=== PATIENT | male | born 1950 | race Caucasian/White ===

== ENCOUNTER → 2020-06-25 18:12 | Outpatient (CLI) | payer MEDICARE, SELFPAY ==
[2020-06-25 18:36] LABS: Basophils # 0.1 K/mm3 (0-0.2); Basophils % 0.8 % (0.1-2.0); Eosinophils # 0.2 K/mm3 (0.0-0.4); Eosinophils % 3.9 % (0.1-12.0); Hematocrit 47.9 % (42.0-52.0); Hemoglobin 15.5 g/dL (14.1-18.0); Lymphocytes # 2.3 K/mm3 (0.7-4.5); Lymphocytes % 38.1 % (10-50); Mean Corpuscular HGB Conc 32.3 g/dL (31.8-35.4); Mean Corpuscular Volume 92.7 fl (80-94); Mean Platelet Volume 8.3 fl (7.4-10.4); Monocytes # 0.4 K/mm3 (0.1-1.0); Monocytes % 6.7 % (1.7-9.3); Neutrophils # 3.1 K/mm3 (1.8-7.8); Neutrophils % 50.5 % (37.0-80.0); Platelet Count 211 K/mm3 (142-424); Red Blood Count 5.16 M/mm3 (4.60-6.20); Red Cell Distribution Width 13.6 % (11.5-17.5); White Blood Count 6.1 K/mm3 (4.8-10.8)
[2020-06-25 18:45] LABS: Alanine Aminotransferase 37 U/L (12-78); Albumin Level 4.6 g/dl (3.5-5.0); Albumin/Globulin Ratio 1.4 (1.1-1.8); Alkaline Phosphatase 100 U/L (38-126); Anion Gap 14.8 mEq/L (5-15); Aspartate Amino Transferase 36 U/L (17-59); Bilirubin,Total 0.6 mg/dl (0.2-1.3); Blood Urea Nitrogen 17 mg/dl (9-20); Calcium 9.7 mg/dl (8.4-10.2); Carbon Dioxide 28 mmol/L (22.0-30.0); Chloride 105 mmol/L (98-107); Chol/HDL Ratio 6.6 (1-3.5); Cholesterol 210 mg/dl (140-200); Estimated Glomerular Filt Rate 60 ml/min (>60); GFR (African American) 72 ML/MIN (>60); Globulin 3.3 g/dL (1.3-3.2); Glucose 88 mg/dl (74-100); HDL Cholesterol 32 mg/dl (40-60); Potassium 4.8 mmoL/L (3.5-5.1); Sodium 143 mmol/L (136-145); Total Protein,Serum 7.9 g/dl (6.3-8.2); Triglycerides 220 mg/dl (30-150); VLDL Cholesterol 44 mg/dL (0-40)
[2020-06-25 18:55] LABS: Direct LDL Cholesterol 136.97 mg/dL (100-129)
[2020-06-25 19:05] LABS: T4 (Thyroxine) 8.9 ug/dl (5.53-11.0)
[2020-06-25 19:19] LABS: Prostate Specific Ag Screen 3.5 ng/ml (0.0-4.0)
== END ==
PROVIDERS: Visit Provider Family Medicine
DX: E03.9 Hypothyroidism, unspecified (principal); Z12.5 Encounter for screening for malignant neoplasm of prostate
CPT/HCPCS: 80053; 80061; 84436; 84443; 85025; G0103

== ENCOUNTER → 2020-07-03 13:11 | Outpatient (CLI) | payer MEDICARE, SELFPAY ==
--- NOTE | 2020-07-03 13:11 | CA_ITS ---
APPROVED REPORT EXAM: Comprehensive 2D, Doppler, and color-flow Echocardiogram Battery Assembler Dry Cell: Myla Dean RVT Ht: 5 ft 9 in Wt: 228lbs BSA: 2.18 BP: 126/80 mmHg Indications: EDEMA,HTN,DM,HLD 2D Dimensions LVOT 2.31 cm (M/F) 1.5-2.5 M-Mode Dimensions RVDd 2.88 cm (0.9-2.6) LA Diam 3.20 cm (1.9-4.0) LVDd 5.55 cm (3.5-5.7) Ao Diam 3.62 cm (2.0-3.7) LVDs 3.73 cm (3.5-5.7) IVSd 0.97 cm (0.6-1.1) PWd 0.76 cm (0.6-1.1) EF (Teich) 60.60% FS 32.80% EDV (Teich) 150.50 mL ESV (Teich) 59.30 mL LV Diastology E Decel Time 200.00 (160-240 msec) E/A Ratio 0.7 MED E' 8.20 (< 7 cm/sec) E'/MED E' Ratio 6.52 (>14) LAT E' 10.50 (<10 cm/sec) E/LAT E' Ratio 5.10 (>14) Mitral Valve MV E Max Benjamin. 54.00 (40-130 cm/s) MV A Velocity 79.00 (40-130 cm/s) E/A Ratio 0.67 MV Decel. Time 200.00 (160-240 ms) MV PHT 59.00 ms Pulmonary Valve PV Peak Velocity 85.00 (50-150 cm/s) Left Ventricle Left atrium is mildly enlarged, left ventricle is normal size, mild concentric left ventricular hypertrophy, visually estimated ejection fraction 55% with no regional wall motion abnormality, grade 1 diastolic dysfunction seen without tissue Doppler evidence of raise left atrial pressure. Right Ventricle Right atrium and right ventricle are mildly enlarged with normal contractility. Aortic Valve Aortic valve is thickened and calcified leaflet chordae display good mobility, there is no aortic stenosis or aortic insufficiency. Mitral Valve Mitral valve is grossly normal, there is mild mitral regurgitation. Tricuspid Valve Tricuspid valve is grossly normal, there is mild tricuspid regurgitation, tricuspid regurgitation jet velocity is inadequate for calculation of the right ventricular systolic pressure. Pulmonic Valve Pulmonic valve is poorly visualized. Great Vessels Aortic root is normal size. Pericardium No significant pericardial effusion noted. Conclusion 1. Mild biatrial alignment, normal left ventricular size, mild concentric left ventricular hypertrophy, visually estimated ejection fraction 55% with no regional wall motion abnormality, grade 1 diastolic dysfunction seen without tissue Doppler evidence of raise left atrial pressure. 2. Mild mitral and tricuspid regurgitation. 3. No significant pericardial effusion noted. Electronically signed by : Kaleb Caballero, 07/04/2020 16:32:18
== END ==
PROVIDERS: PCP Family Medicine; Visit Provider Family Medicine
DX: R60.0 Localized edema (principal)
CPT/HCPCS: 93306

== ENCOUNTER → 2020-11-21 14:25 | Outpatient (CLI) | payer MEDICARE, SELFPAY ==
[2020-11-21 14:45] LABS: Basophils # 0.1 K/mm3 (0-0.2); Eosinophils # 0.3 K/mm3 (0.0-0.4); Eosinophils % 4.8 % (0.1-12.0); Hemoglobin 16.3 g/dL (14.1-18.0); Lymphocytes # 2.4 K/mm3 (0.7-4.5); Mean Corpuscular HGB Conc 33.1 g/dL (31.8-35.4); Mean Corpuscular Hemoglobin 29.2 pg (27.0-31.2); Mean Corpuscular Volume 88.1 fl (80-94); Mean Platelet Volume 8.6 fl (7.4-10.4); Monocytes # 0.4 K/mm3 (0.1-1.0); Monocytes % 5.3 % (1.7-9.3); Neutrophils # 3.5 K/mm3 (1.8-7.8); Neutrophils % 52.8 % (37.0-80.0); Platelet Count 201 K/mm3 (142-424); Red Blood Count 5.56 M/mm3 (4.60-6.20); Red Cell Distribution Width 14.2 % (11.5-17.5); White Blood Count 6.6 K/mm3 (4.8-10.8)
[2020-11-21 14:52] LABS: Alanine Aminotransferase 57 U/L (12-78); Albumin Level 4.6 g/dl (3.5-5.0); Albumin/Globulin Ratio 1.3 (1.1-1.8); Alkaline Phosphatase 85 U/L (38-126); Anion Gap 16.5 mEq/L (5-15); Aspartate Amino Transferase 42 U/L (17-59); Bilirubin,Total 0.5 mg/dl (0.2-1.3); Blood Urea Nitrogen 17 mg/dl (9-20); Calcium 9.5 mg/dl (8.4-10.2); Carbon Dioxide 26 mmol/L (22.0-30.0); Chloride 104 mmol/L (98-107); Chol/HDL Ratio 8.7 (1-3.5); Cholesterol 226 mg/dl (140-200); Estimated Glomerular Filt Rate 54 ml/min (>60); GFR (African American) 66 ML/MIN (>60); Globulin 3.6 g/dL (1.3-3.2); Glucose 100 mg/dl (74-100); HDL Cholesterol 26 mg/dl (40-60); Potassium 4.5 mmoL/L (3.5-5.1); Sodium 142 mmol/L (136-145); Total Protein,Serum 8.2 g/dl (6.3-8.2); Triglycerides 289 mg/dl (30-150); VLDL Cholesterol 58 mg/dL (0-40)
[2020-11-21 15:03] LABS: Direct LDL Cholesterol 145.27 mg/dL (100-129)
[2020-11-21 15:07] LABS: T4 (Thyroxine) 10.6 ug/dl (5.53-11.0)
[2020-11-21 15:21] LABS: Thyroid Stimulating Hormone 2.91 uIU/mL (0.465-4.68)
== END ==
PROVIDERS: Visit Provider Family Medicine
DX: E03.9 Hypothyroidism, unspecified (principal); I10 Essential (primary) hypertension; R60.9 Edema, unspecified; I51.89 Other ill-defined heart diseases
CPT/HCPCS: 80053; 80061; 84436; 84443; 85025

== ENCOUNTER → 2020-12-19 19:41 | Outpatient (CLI) | payer MEDICARE, SELFPAY | PROVIDERS: PCP Family Medicine; Visit Provider Family Medicine | DX: G47.30 Sleep apnea, unspecified (principal); I10 Essential (primary) hypertension; R40.0 Somnolence; R06.83 Snoring; G47.33 Obstructive sleep apnea (adult) (pediatric) | CPT/HCPCS: 95810 ==

== ENCOUNTER → 2021-03-13 19:48 | Outpatient (CLI) | payer MEDICARE, SELFPAY | PROVIDERS: PCP Family Medicine; Visit Provider Specialist | DX: G47.33 Obstructive sleep apnea (adult) (pediatric) (principal); G47.61 Periodic limb movement disorder; R09.02 Hypoxemia | CPT/HCPCS: 95811 ==

== ENCOUNTER → 2021-03-27 12:15 | Outpatient (CLI) | payer MEDICARE, SELFPAY ==
[2021-03-27 12:18] LABS: MANUAL DIFFERENTIAL MANUAL DIFFERENTIAL (MANUAL DIFF)
[2021-03-27 13:10] LABS: Basophils # 0.1 K/mm3 (0-0.2); Eosinophils # 0.3 K/mm3 (0.0-0.4); Eosinophils % 5.7 % (0.1-12.0); Hematocrit 43.7 % (42.0-52.0); Hemoglobin 14.8 g/dL (14.1-18.0); Lymphocytes # 2.1 K/mm3 (0.7-4.5); Lymphocytes % 36.5 % (10-50); Mean Corpuscular HGB Conc 33.9 g/dL (31.8-35.4); Mean Corpuscular Hemoglobin 29.3 pg (27.0-31.2); Mean Corpuscular Volume 86.4 fl (80-94); Mean Platelet Volume 8.1 fl (7.4-10.4); Monocytes # 0.4 K/mm3 (0.1-1.0); Monocytes % 6.8 % (1.7-9.3); Neutrophils # 2.9 K/mm3 (1.8-7.8); Neutrophils % 50.1 % (37.0-80.0); Platelet Count 191 K/mm3 (142-424); Red Blood Count 5.06 M/mm3 (4.60-6.20); Red Cell Distribution Width 14.3 % (11.5-17.5); White Blood Count 5.8 K/mm3 (4.8-10.8)
[2021-03-27 13:27] LABS: Iron 101 ug/dL (49-181)
[2021-03-27 13:36] LABS: Total Iron Binding Capacity 334 ug/dL (261-462)
[2021-03-27 14:01] LABS: Eosinophils % 5 % (0-3); Lymphocytes % 33 % (10-50); Monocytes % 4 % (2-9); Neutrophils % 56 % (42-76); Platelet Estimate Normal; RBC Morphology Normal; Total Cells Counted 100
[2021-03-27 14:03] LABS: Ferritin 20.8 ng/ml (17.9-464)
== END ==
PROVIDERS: Visit Provider Nurse Practitioner Family
DX: D51.0 Vitamin B12 deficiency anemia due to intrinsic factor deficiency (principal)
CPT/HCPCS: 36415; 82728; 83540; 83550; 85007; 85014; 85018; 85048; 85049

== ENCOUNTER → 2021-10-13 19:26 | Outpatient (CLI) | payer MEDICARE, SELFPAY | PROVIDERS: PCP Family Medicine; Visit Provider Nurse Practitioner Family | DX: G47.33 Obstructive sleep apnea (adult) (pediatric) (principal); G47.61 Periodic limb movement disorder; R06.83 Snoring | CPT/HCPCS: 95811 ==

== ENCOUNTER → 2021-11-03 09:10 | Outpatient (CLI) | payer MEDICARE, SELFPAY ==
--- NOTE | 2021-11-03 09:15 | XR_ITS ---
FINAL REPORT TECHNIQUE: Chest PA & Lateral CLINICAL HISTORY: nocturnal hypoxemia. sleep apnea. oxygen dropping 72% at night. smoking hx quit in FINDINGS: 2 views of the chest were performed. The heart size is normal. The mediastinum is within normal limits. There is scarring or atelectasis in the lung bases. There are no pleural effusions. There is no pneumothorax. The bony thorax appears intact. IMPRESSION: Bibasilar scarring or atelectasis. Reviewed, Interpreted and Dictated by Don Cardenas MD Transcribed by Ray Stevenson Authenticated by Don Cardenas MD on 11/03/2021 11:17:20 AM [facility]
[2021-11-03 10:30] VITALS: PULSE 65; PULSE 73
== END ==
PROVIDERS: PCP Family Medicine; Visit Provider Nurse Practitioner Family
DX: G47.33 Obstructive sleep apnea (adult) (pediatric) (principal); G47.34 Idiopathic sleep related nonobstructive alveolar hypoventilation; I51.89 Other ill-defined heart diseases; Z99.81 Dependence on supplemental oxygen
CPT/HCPCS: 71046; 94060; 94618; 94640; 94727; 94729

== ENCOUNTER → 2021-12-22 07:14 | Outpatient (CLI) | payer MEDICARE, SELFPAY ==
--- NOTE | 2021-12-22 07:15 | NM_ITS ---
APPROVED REPORT Exam: Nuclear Stress Test Indication: Chest pain, SOB, Abnormal EKG, HTN, High cholesterol Patient Location: Outpatient Stress Tech: Kayley Weller MT Tech:Fabiana Ram, ARRT, RT (R)(N) Ht: 5 ft 9 in Wt: 240 lbs HR: 53 bpm BP: 148/85 mmHg BSA: 2.23 m2 BMI: 35.4 History: Chest pain, SOB, Abnormal EKG, HTN, High cholesterol Procedure: Patient received a 0.4 mg of intravenous Lexiscan, resting heart rate 53 bpm, resting blood pressure 148/85 mmHg, with Lexiscan maximum heart rate achived was 77 bpm which is Less than 85 % of the maximum predicted heart rate and blood pressure was 161/87 mmHg. With Lexiscan, patient denied any complaint of chest pain. Electrocardiogram Resting electrocardiogram shows sinus rhythm, with Lexiscan there is less than 1.[address] segment depression noted from the baseline EKG. The EKG portion of the Lexiscan is nondiagnostic. Cardiac Stress and Resting SPECT Images: Cardiac Stress and Resting SPECT images were obtained using technetium 99m Myoview 31.0 mCi stress and 10.15 mCi at rest. Gated SPECT for analysis of segmental wall motion and calculation of the ejection fraction also done. Cardiac stress and resting SPECT images show uniform myocardial activity without segmental perfusion abnormality, computer derived ejection fraction is over 65% with no regional wall motion abnormality, right ventricle is normal size and contractility. Conclusion: 1. The EKG portion of the Lexiscan Myoview is nondiagnostic. 2. No scintigraphic evidence of reversible ischemia seen, computer derived ejection fraction is over 65% with no regional wall motion abnormality, right ventricle is normal size and contractility. 3. Normal Lexiscan Myoview study. Electronically signed by : Kaleb Caballero MD 12/22/2021 20:37:33
--- NOTE | 2021-12-22 07:59 | CA_ITS ---
APPROVED REPORT EXAM: Comprehensive 2D, Doppler, and color-flow Echocardiogram Spiral Winding Machine Helper: Lacie Sam, RCS, RVS Ht: 5 ft 9 in Wt: 242lbs BSA: 2.24 BP: 162/78 mmHg Indications: CP, abn ekg, SOA, CHF 2D Dimensions IVSd 1.18 cm LVEF (Visual) 69.10 % PWd 1.07 cm LA Volume 41.60 mL LVDd 4.96 cm LA Volume Index 18.230770 mL/m2 (M/F) 16-34 LVDs 3.03 cm Aortic Root 3.25 cm Left Atrium 3.38 cm LVOT 1.72 cm (M/F) 1.5-2.5 M-Mode Dimensions LA Diam 4.35 cm (1.9-4.0) Ao Diam 3.62 cm (2.0-3.7) EPSs 0.38 cm TAPSE 2.56 (<1.7) LV Diastology E Decel Time 267.00 (160-240 msec) E/A Ratio 1.06 MED E' 6.70 (< 7 cm/sec) MED A' 7.80 cm/s E'/MED E' Ratio 14.04 (>14) LAT E' 9.20 (<10 cm/sec) LAT A' 9.60 cm/s E/LAT E' Ratio 10.23 (>14) Aortic Valve LVOT Max 117.00 (70-110 cm/s) LVOT VTI 28.17 cm AoV Peak Benjamin. 150.00 (50-130 cm/s) AO Peak GR. 9.10 mmHg AO Mean GR. 4.70 (<5 mmHg) AO VTI 33.28 (18-25 cm) ABELARDO (VTI) 1.97 (2.5-4.5 cm2) Mitral Valve MV A Velocity 89.00 (40-130 cm/s) E/A Ratio 1.06 MV Decel. Time 267.00 (160-240 ms) MV Mean Gr. 1.60 (<2mmHg) MV PHT 73.00 ms Pulmonary Valve PV Peak Velocity 100.00 (50-150 cm/s) Tricuspid Valve TR P. Velocity 182.00 cm/s RAP Estimate 10.00 mmHg RVSP 23.20 mmHg Left Ventricle Left atrium is mildly enlarged, left ventricle is normal size, mild concentric left ventricular hypertrophy, estimated ejection fraction 55% with no regional wall motion abnormality, grade 2 diastolic dysfunction seen without tissue Doppler evidence of raise left atrial pressure. Right Ventricle Right atrium and right ventricular enlargement with normal contractility. Aortic Valve Aortic valve is minimally thickened and fibrosed, there is no aortic stenosis or aortic insufficiency. Mitral Valve Mitral valve grossly normal, there is trace mitral regurgitation. Tricuspid Valve Tricuspid valve grossly normal, there is trace tricuspid regurgitation, tricuspid regurgitation jet velocity is inadequate for calculation of the right ventricular systolic pressure Pulmonic Valve Pulmonic valve is poorly visualized. Great Vessels Aortic root is normal size. Inferior vena cava is poorly visualized. Pericardium No significant pericardial effusion. Conclusion 1. Mild biatrial enlargement, normal left ventricular size, mild concentric left ventricular hypertrophy estimated ejection fraction 55% with no regional wall motion abnormality, grade 2 diastolic dysfunction. No tissue Doppler evidence of raise left atrial pressure. 2. Mildly noted ventricular normal contractility. 3. Trace mitral and tricuspid regurgitation. 4. No significant pericardial effusion noted. Electronically signed by : Kaleb Caballero MD 12/22/2021 20:58:41
--- NOTE | 2021-12-22 08:50 | HMH.ITSHM ---
Current Home Medications as stated by this patient Luis Cueto or outside sales representative. []TADALAFIL POTASSIUM NEBIVOLOL METFORMIN LORATADINE LEVOTHYROXINE FUROSEMIDE VITAMIN B12 ASA ALBUTEROL
--- NOTE | 2021-12-22 09:06 | CA_ITS ---
APPROVED REPORT Exam: Pharmacologic Technologist: Kayley Garcia, Ht: 5 ft 9 in Wt: 242 lbs BSA: 2.24 m2 HR: 54 bpm BP: 148/85 mmHg Medical History Medications: Levothyroxine,,,,, Vitamin B12,,,,, Albuterol,,,,, LoraTADINE,,,,, Bystolic,,,,, TAdalafil,,,,, Furosemide,,,,, Metformin ER,,,,, Potassuim Chloride ER,,,,, Stress Test Details Test: LEXISCAN HR Resting HR: 53 bpm Max Heart Rate (APMHR): 147.202435 bpm Max HR Achieved: 77 bpm Target HR (85% APMHR): 124.660818 bpm % of APMHR: 52.38 Recovery HR: 67 bpm BP Resting BP: 148/85 mmHg Max BP: 161/87 mmHg Recovery BP: 157.0/92.0 mmHg ECG Resting ECG: Sinus Bradycardia Clinical Reason for Termination: Completed Protocol Exercise duration: 04:08 min Highest Stage Achieved: Stress ECG Conclusion Symptoms: No CP Arrhythmias/Ectopy: None ST-T Changes: <1.[address] Segment changes Conclusion: Non-Diagnostic Test Summary RECOVERY 02:29 . . 64 . 157/ 92 . . REST 01:18 . . 53 . 148/ 85 . . Stage 1 01:00 . . 74 . . . . Stage 2 01:00 . . 75 . 152/ 84 . . Stage 3 01:00 . . 69 . 161/ 87 . . Stage 4 01:00 . . 66 . . . . Stage 4 01:08 . . 66 . 145/ 82 . Stop exercise at 04:08 RECOVERY 01:00 . . 65 . . . . RECOVERY 02:00 . . 65 . . . . RECOVERY 02:29 . . 64 . 157/ 92 . . Electronically signed by : Kaleb Caballero MD 12/22/2021 20:33:33
== END ==
PROVIDERS: PCP Family Medicine; Visit Provider Nurse Practitioner Family
DX: R06.00 Dyspnea, unspecified; R07.9 Chest pain, unspecified; R60.9 Edema, unspecified; I11.9 Hypertensive heart disease without heart failure; R94.31 Abnormal electrocardiogram [ECG] [EKG]
CPT/HCPCS: 78452; 93017; 93306; A9502; J2785

== ENCOUNTER → 2022-08-03 09:08 | Outpatient (CLI) | payer MEDICARE, SELFPAY ==
[2022-08-03 10:49] LABS: Alanine Aminotransferase 48 U/L (12-78); Albumin Level 4.4 g/dl (3.5-5.0); Alkaline Phosphatase 90 U/L (38-126); Aspartate Amino Transferase 41 U/L (17-59); Bilirubin,Direct 0.1 mg/dl (0.0-0.4); Bilirubin,Indirect 0.4 mg/dL (0.0-0.9); Bilirubin,Total 0.5 mg/dl (0.2-1.3); Bilirubin,Unconjugated 0.3 mg/dL (0.0-1.1); Chol/HDL Ratio 5.5 (1-3.5); Cholesterol 205 mg/dl (140-200); HDL Cholesterol 37 mg/dl (40-60); Total Protein,Serum 7.4 g/dl (6.3-8.2); Triglycerides 231 mg/dl (30-150); VLDL Cholesterol 46 mg/dL (0-40)
[2022-08-03 11:00] LABS: Direct LDL Cholesterol 117.76 mg/dL (100-129)
== END ==
PROVIDERS: PCP Family Medicine; Visit Provider Nurse Practitioner
DX: E78.5 Hyperlipidemia, unspecified (principal); I10 Essential (primary) hypertension
CPT/HCPCS: 36415; 80061; 80076

== ENCOUNTER → 2022-11-17 09:35 | Outpatient (CLI) | payer MEDICARE, SELFPAY ==
[2022-11-17 10:55] VITALS: PULSE 72; PULSE 76
== END ==
PROVIDERS: PCP Family Medicine; Visit Provider Internal Medicine Pulmonary Disease
DX: R06.09 Other forms of dyspnea (principal)
CPT/HCPCS: 94060; 94618; 94640; 94727; 94729

== ENCOUNTER → 2023-03-30 08:12 | Outpatient (CLI) | payer MEDICARE, SELFPAY ==
[2023-03-30 08:56] LABS: Alanine Aminotransferase 64 U/L (12-78); Albumin Level 4.3 g/dl (3.5-5.0); Albumin/Globulin Ratio 1.2 (1.1-1.8); Alkaline Phosphatase 74 U/L (38-126); Anion Gap 9.8 mEq/L (5-15); Aspartate Amino Transferase 55 U/L (17-59); Bilirubin,Total 0.7 mg/dl (0.2-1.3); Blood Urea Nitrogen 19 mg/dl (9-20); Carbon Dioxide 31 mmol/L (22.0-30.0); Chloride 104 mmol/L (98-107); Estimated Glomerular Filt Rate 46 ml/min (>60); GFR (African American) 55 ML/MIN (>60); Globulin 3.5 g/dL (1.3-3.2); Glucose 103 mg/dl (74-100); Potassium 4.8 mmoL/L (3.5-5.1); Sodium 140 mmol/L (136-145); Total Protein,Serum 7.8 g/dl (6.3-8.2)
== END ==
PROVIDERS: PCP Family Medicine; Visit Provider Family Medicine
DX: R07.89 Other chest pain (principal)
CPT/HCPCS: 36415; 80053; 82565; 84520

== ENCOUNTER → 2023-04-01 07:04 | Outpatient (CLI) | payer MEDICARE, SELFPAY ==
[2023-04-01 07:28] VITALS: BP 176/86; PULSE 62; RESP 18; TEMP 36.8; O2SAT 98
[2023-04-01 07:43] LABS: POC Glucose,Bedside 95 (70-110)
[2023-04-01 07:50] VITALS: BP 142/85; PULSE 66; RESP 18; O2SAT 96
== END ==
PROVIDERS: PCP Family Medicine; Visit Provider Physician Assistant
DX: R07.9 Chest pain, unspecified (principal)
CPT/HCPCS: 75574; 82962; Q9967

== ENCOUNTER → 2023-04-08 23:26 | Outpatient (CLI) | payer MEDICARE, SELFPAY ==
[2023-04-08 18:51] LABS: Basophils % 0.5 % (0.1-2.0); Eosinophils # 0.2 K/mm3 (0.0-0.4); Eosinophils % 3.1 % (0.1-12.0); Hematocrit 45.6 % (42.0-52.0); Hemoglobin 14.4 g/dL (14.1-18.0); Lymphocytes # 2.2 K/mm3 (0.7-4.5); Lymphocytes % 38.8 % (10-50); Mean Corpuscular HGB Conc 31.7 g/dL (31.8-35.4); Mean Corpuscular Hemoglobin 30.4 pg (27.0-31.2); Mean Platelet Volume 9.5 fl (7.4-10.4); Monocytes # 0.4 K/mm3 (0.1-1.0); Monocytes % 6.5 % (1.7-9.3); Neutrophils # 2.9 K/mm3 (1.8-7.8); Platelet Count 175 K/mm3 (142-424); Red Blood Count 4.74 M/mm3 (4.60-6.20); Red Cell Distribution Width 15.2 % (11.5-17.5); White Blood Count 5.6 K/mm3 (4.8-10.8)
[2023-04-08 18:56] LABS: Alanine Aminotransferase 50 U/L (12-78); Albumin Level 4.5 g/dl (3.5-5.0); Albumin/Globulin Ratio 1.5 (1.1-1.8); Alkaline Phosphatase 83 U/L (38-126); Aspartate Amino Transferase 45 U/L (17-59); Bilirubin,Total 0.6 mg/dl (0.2-1.3); Blood Urea Nitrogen 20 mg/dl (9-20); Calcium 9.4 mg/dl (8.4-10.2); Carbon Dioxide 29 mmol/L (22.0-30.0); Chloride 106 mmol/L (98-107); Estimated Glomerular Filt Rate 46 ml/min (>60); GFR (African American) 55 ML/MIN (>60); Globulin 3.1 g/dL (1.3-3.2); Glucose 91 mg/dl (74-100); Sodium 142 mmol/L (136-145); Total Protein,Serum 7.6 g/dl (6.3-8.2)
[2023-04-08 19:27] LABS: Prostate Specific Ag Screen 4.2 ng/ml (0.0-4.0)
[2023-04-08 19:50] LABS: Hemoglobin A1C 5.9 % (4.0-6.0)
== END ==
LOC: LAB.DROPOF 23:26
PROVIDERS: PCP Family Medicine; Visit Provider Family Medicine
DX: E11.9 Type 2 diabetes mellitus without complications (principal); Z00.00 Encounter for general adult medical examination without abnormal findings; R06.09 Other forms of dyspnea; Z86.018 Personal history of other benign neoplasm; Z12.5 Encounter for screening for malignant neoplasm of prostate; Z79.84 Long term (current) use of oral hypoglycemic drugs
CPT/HCPCS: 80053; 83036; 84443; 85025; G0103

== ENCOUNTER → 2023-06-17 14:05 | Outpatient (CLI) | payer MEDICARE, SELFPAY ==
[2023-06-17 15:38] LABS: Basophils % 0.8 % (0.1-2.0); Eosinophils # 0.2 K/mm3 (0.0-0.4); Eosinophils % 3.8 % (0.1-12.0); Hematocrit 43.5 % (42.0-52.0); Hemoglobin 14.6 g/dL (14.1-18.0); Lymphocytes # 2.1 K/mm3 (0.7-4.5); Lymphocytes % 35.8 % (10-50); Mean Corpuscular HGB Conc 33.6 g/dL (31.8-35.4); Mean Corpuscular Hemoglobin 31.6 pg (27.0-31.2); Mean Corpuscular Volume 94.3 fl (80-94); Mean Platelet Volume 8.2 fl (7.4-10.4); Monocytes # 0.4 K/mm3 (0.1-1.0); Monocytes % 6.5 % (1.7-9.3); Platelet Count 198 K/mm3 (142-424); Red Blood Count 4.61 M/mm3 (4.60-6.20); White Blood Count 5.7 K/mm3 (4.8-10.8)
[2023-06-17 16:44] LABS: Alanine Aminotransferase 54 U/L (12-78); Albumin Level 4.5 g/dl (3.5-5.0); Alkaline Phosphatase 76 U/L (38-126); Anion Gap 13.3 mEq/L (5-15); Aspartate Amino Transferase 41 U/L (17-59); Bilirubin,Direct 0.2 mg/dl (0.0-0.4); Bilirubin,Indirect 0.2 mg/dL (0.0-0.9); Bilirubin,Total 0.4 mg/dl (0.2-1.3); Bilirubin,Unconjugated 0.2 mg/dL (0.0-1.1); Blood Urea Nitrogen 24 mg/dl (9-20); Calcium 9.3 mg/dl (8.4-10.2); Carbon Dioxide 29 mmol/L (22.0-30.0); Chloride 105 mmol/L (98-107); Chol/HDL Ratio 6.1 (1-3.5); Cholesterol 178 mg/dl (140-200); Estimated Glomerular Filt Rate 50 ml/min (>60); GFR (African American) 60 ML/MIN (>60); Glucose 96 mg/dl (74-100); HDL Cholesterol 29 mg/dl (40-60); Magnesium 2.1 mg/dl (1.6-2.3); Potassium 4.3 mmoL/L (3.5-5.1); Sodium 143 mmol/L (136-145); Total Protein,Serum 7.7 g/dl (6.3-8.2); Triglycerides 220 mg/dl (30-150); VLDL Cholesterol 44 mg/dL (0-40)
[2023-06-17 16:55] LABS: Direct LDL Cholesterol 106.72 mg/dL (100-129)
[2023-06-17 17:07] LABS: Free T4 (Free Thyroxine) 1.31 ng/dl (0.78-2.19)
[2023-06-17 17:14] LABS: Thyroid Stimulating Hormone 0.71 uIU/mL (0.465-4.68)
== END ==
PROVIDERS: PCP Family Medicine; Visit Provider Internal Medicine
DX: E78.5 Hyperlipidemia, unspecified (principal); I10 Essential (primary) hypertension; I51.89 Other ill-defined heart diseases; R06.09 Other forms of dyspnea; I20.89 Other forms of angina pectoris
CPT/HCPCS: 36415; 80048; 80061; 80076; 83735; 84439; 84443; 85025

== ENCOUNTER 2023-06-25 09:26 | Day surgery (SDC) | payer MEDICARE, SELFPAY ==
[2023-06-25] VITALS (14 sets, daily range): BP systolic 88–150; BP diastolic 43–89; PULSE 52–96; RESP 17–19; O2SAT 91–98; BMI 34.5
--- NOTE | 2023-06-25 | IR_ITS ---
APPROVED REPORT Patient Location: Outpatient PROCEDURES Left heart catheterization Selective coronary angiogram Drug-eluting stent deployment to the proximal LAD Intravascular ultrasound to the LAD INDICATION High risk abnormal Myoview, Coronary artery disease, Angina pectoris, Complex percutaneous revascularization requiring IVUS guidance which is superior over angiography guided complex interventions, Informed consent was obtained prior to the procedure. COMPLICATIONS None Estimated Blood Loss: Less than 10 ml TECHNIQUE One percent lidocaine used to anesthetize the right anterior aspect of the wrist. The right radial artery was accessed via the Seldinger technique. A 6 Algerian sheath was placed in the right radial artery. 2.5 mg of Verapamil, 800 mcg of nitroglycerin, 1mg Lidocaine and 5000 U Heparin were given through the arterial sheath. The papa catheter and 6 Algerian JL 3 guide catheter were also used to perform left heart catheterization and selective coronary angiogram. At the end of the diagnostic angiogram therapeutic heparin was administered giving a therapeutic ACT and the guide catheter was placed in the left main artery. A Choice PT extra-support wire was placed into the LAD and a 4 mm x 30 mm [place] frontier stent was deployed at 12 luther reducing the stenosis. A 4 mm x 12 mm balloon was then deployed at 20 and 24 luther to post dilate the ostial and proximal and mid segment of the stent. Intravascular ultrasound probe was then advanced which demonstrated while the stent was nicely opposed to the vessel wall further expansion was more desirable. A 4.5 x 12 mm noncompliant balloon was then advanced and deployed at 20 and 24 luther in the ostial proximal and proximal third portion of the stent. SOCORRO-3 flow was present before and after the procedure. Within the procedure the apparatus was removed the sheath was removed and hemostasis was achieved using TR banding patient was transferred to the postop putting in stable condition ANGIOGRAPHIC RESULTS The left main artery Has an ostial 10 to 20% stenosis The left anterior descending artery Has a proximal 50% followed by an 80% stenosis The circumflex artery Is nondominant and gives rise to a large ramus intermedius which has mild 10% luminal irregularities. The circumflex artery itself has a mid vessel long tubular 20 to 30% stenosis The right coronary artery Is a large dominant vessel and has a proximal concentric 30 to 40% stenosis. The entire vessel has mild vascular ectasia with diffuse 10% stenoses The ESTRADA ventriculogram reveals Not performed The left ventricular end-diastolic pressure 20 to 25 mmHg IMPRESSION Severe proximal LAD disease as described above Successful stent to the proximal LAD severe disease reduced to 0% with 1 drug-eluting stent Persistent moderate stenosis in a large dominant right coronary artery as described above Elevated LVEDP consistent with diastolic dysfunction PLAN 1. Clopidogrel 75 mg daily plus aspirin 81 mg daily 2. LDL less than 55 to be achieved with high intensity statin 3. Avoidance of tobacco products 4. Risk factor modification 5. Cardiac rehabilitation Electronically signed by : Cheng Billy MD 06/25/2023 13:03:53
[2023-06-25 10:05] LABS: Basophils % 0.7 % (0.1-2.0); Eosinophils # 0.2 K/mm3 (0.0-0.4); Eosinophils % 3.5 % (0.1-12.0); Hematocrit 42.6 % (42.0-52.0); Hemoglobin 14.5 g/dL (14.1-18.0); Lymphocytes # 2.2 K/mm3 (0.7-4.5); Mean Corpuscular HGB Conc 34.1 g/dL (31.8-35.4); Mean Corpuscular Hemoglobin 32.4 pg (27.0-31.2); Monocytes # 0.4 K/mm3 (0.1-1.0); Monocytes % 6.5 % (1.7-9.3); Neutrophils # 3.2 K/mm3 (1.8-7.8); Neutrophils % 53.2 % (37.0-80.0); Platelet Count 168 K/mm3 (142-424); Red Blood Count 4.48 M/mm3 (4.60-6.20); Red Cell Distribution Width 13.8 % (11.5-17.5)
[2023-06-25 10:17] LABS: Anion Gap 11.5 mEq/L (5-15); Blood Urea Nitrogen 24 mg/dl (9-20); Carbon Dioxide 31 mmol/L (22.0-30.0); Chloride 104 mmol/L (98-107); Creatinine Clearance Estimated 65 mL/min (50-200); Estimated Glomerular Filt Rate 46 ml/min (>60); GFR (African American) 55 ML/MIN (>60); Glucose 105 mg/dl (74-100); Potassium 4.5 mmoL/L (3.5-5.1); Sodium 142 mmol/L (136-145)
--- NOTE | 2023-06-25 13:14 | SUR.PHASEII ---
pt sitting up in bed eating chicken salad sandwich and chips.
[2023-06-25 14:15] LABS: CATHL Activated Clotting Time > 400 SEC (74-125)
== END 2023-06-25 15:30 | disposition home or self-care (01) ==
PROVIDERS: PCP Family Medicine; Visit Provider Internal Medicine
DX: I25.118 Atherosclerotic heart disease of native coronary artery with other forms of angina pectoris (principal); I11.0 Hypertensive heart disease with heart failure; I50.9 Heart failure, unspecified; E03.9 Hypothyroidism, unspecified; E11.9 Type 2 diabetes mellitus without complications; Z79.84 Long term (current) use of oral hypoglycemic drugs; Z79.899 Other long term (current) drug therapy; J44.9 Chronic obstructive pulmonary disease, unspecified; Z87.891 Personal history of nicotine dependence; E78.5 Hyperlipidemia, unspecified
CPT/HCPCS: 80048; 85025; 85347; 92928; 92978; 93454; 99152; 99153; C1725; C1769; C1876; C9600; J1644; Q9967

== ENCOUNTER 2023-11-01 11:40 | Outpatient (CLI) | payer MEDICARE, SELFPAY ==
[2023-11-01 12:07] LABS: Basophils % 0.7 % (0.1-2.0); Eosinophils # 0.2 K/mm3 (0.0-0.4); Eosinophils % 3.1 % (0.1-12.0); Hemoglobin 14.8 g/dL (14.1-18.0); Lymphocytes # 1.8 K/mm3 (0.7-4.5); Lymphocytes % 31.2 % (10-50); Mean Corpuscular HGB Conc 33.7 g/dL (31.8-35.4); Mean Corpuscular Hemoglobin 30.9 pg (27.0-31.2); Mean Corpuscular Volume 91.7 fl (80-94); Mean Platelet Volume 7.8 fl (7.4-10.4); Monocytes # 0.4 K/mm3 (0.1-1.0); Monocytes % 6.2 % (1.7-9.3); Neutrophils # 3.4 K/mm3 (1.8-7.8); Neutrophils % 58.8 % (37.0-80.0); Platelet Count 174 K/mm3 (142-424); Red Blood Count 4.79 M/mm3 (4.60-6.20); Red Cell Distribution Width 14.5 % (11.5-17.5); White Blood Count 5.9 K/mm3 (4.8-10.8)
[2023-11-01 12:30] LABS: Chloride 106 mmol/L (98-107)
[2023-11-01 12:31] LABS: Potassium 4.3 mmoL/L (3.5-5.1); Sodium 140 mmol/L (136-145)
[2023-11-01 12:33] LABS: Alanine Aminotransferase 60 U/L (12-78); Albumin Level 4.2 g/dl (3.5-5.0); Alkaline Phosphatase 62 U/L (38-126); Anion Gap 6.3 mEq/L (5-15); Aspartate Amino Transferase 56 U/L (17-59); Bilirubin,Direct 0.3 mg/dl (0.0-0.4); Bilirubin,Indirect 0.2 mg/dL (0.0-0.9); Bilirubin,Total 0.5 mg/dl (0.2-1.3); Bilirubin,Unconjugated 0.2 mg/dL (0.0-1.1); Blood Urea Nitrogen 22 mg/dl (9-20); Calcium 8.9 mg/dl (8.4-10.2); Carbon Dioxide 32 mmol/L (22.0-30.0); Cholesterol 182 mg/dl (140-200); Estimated Glomerular Filt Rate 31 ml/min (>60); GFR (African American) 38 ML/MIN (>60); Glucose 88 mg/dl (74-100); Total Protein,Serum 7.1 g/dl (6.3-8.2); Triglycerides 153 mg/dl (30-150); VLDL Cholesterol 31 mg/dL (0-40)
[2023-11-01 12:34] LABS: Chol/HDL Ratio 5.1 (1-3.5); HDL Cholesterol 36 mg/dl (40-60)
[2023-11-01 12:50] LABS: Free T4 (Free Thyroxine) 1.53 ng/dl (0.78-2.19)
[2023-11-01 12:51] LABS: Direct LDL Cholesterol 109.91 mg/dL (100-129)
[2023-11-01 13:07] LABS: Thyroid Stimulating Hormone 1.74 uIU/mL (0.465-4.68)
== END 2023-11-01 23:59 ==
LOC: LAB 11:41
PROVIDERS: PCP Family Medicine; Visit Provider Nurse Practitioner Family
DX: I10 Essential (primary) hypertension (principal); I25.10 Atherosclerotic heart disease of native coronary artery without angina pectoris; E78.5 Hyperlipidemia, unspecified; E03.9 Hypothyroidism, unspecified; Z87.891 Personal history of nicotine dependence
CPT/HCPCS: 36415; 80048; 80061; 80076; 84439; 84443; 85025

== ENCOUNTER 2023-11-23 13:24 | Outpatient (CLI) | payer MEDICARE, SELFPAY ==
[2023-11-23 14:56] LABS: Anion Gap 10.4 mEq/L (5-15); Blood Urea Nitrogen 24 mg/dl (9-20); Calcium 9.2 mg/dl (8.4-10.2); Carbon Dioxide 25 mmol/L (22.0-30.0); Chloride 109 mmol/L (98-107); Estimated Glomerular Filt Rate 31 ml/min (>60); GFR (African American) 37 ML/MIN (>60); Glucose 94 mg/dl (74-100); Potassium 4.4 mmoL/L (3.5-5.1); Sodium 140 mmol/L (136-145)
== END 2023-11-23 23:59 ==
LOC: LAB 13:25
PROVIDERS: PCP Family Medicine; Visit Provider Internal Medicine
DX: E11.9 Type 2 diabetes mellitus without complications (principal); E78.5 Hyperlipidemia, unspecified; I11.9 Hypertensive heart disease without heart failure; R06.09 Other forms of dyspnea; Z95.5 Presence of coronary angioplasty implant and graft; Z79.84 Long term (current) use of oral hypoglycemic drugs; Z87.891 Personal history of nicotine dependence
CPT/HCPCS: 36415; 80048; 83036

== ENCOUNTER 2024-04-12 09:59 | Outpatient (CLI) | payer MEDICARE, SELFPAY ==
[2024-04-12 19:38] LABS: Basophils % 0.8 % (0.1-2.0); Eosinophils # 0.1 K/mm3 (0.0-0.4); Eosinophils % 2.4 % (0.1-12.0); Hematocrit 46.4 % (42.0-52.0); Hemoglobin 15.3 g/dL (14.1-18.0); Lymphocytes # 1.6 K/mm3 (0.7-4.5); Lymphocytes % 32.5 % (10-50); Mean Corpuscular Hemoglobin 31.2 pg (27.0-31.2); Mean Corpuscular Volume 94.7 fl (80-94); Mean Platelet Volume 8.6 fl (7.4-10.4); Monocytes # 0.3 K/mm3 (0.1-1.0); Monocytes % 6.4 % (1.7-9.3); Neutrophils # 2.9 K/mm3 (1.8-7.8); Neutrophils % 57.9 % (37.0-80.0); Platelet Count 188 K/mm3 (142-424); Red Cell Distribution Width 14.7 % (11.5-17.5)
[2024-04-12 20:10] LABS: Alanine Aminotransferase 66 U/L (12-78); Albumin Level 4.3 g/dl (3.5-5.0); Albumin/Globulin Ratio 1.3 (1.1-1.8); Alkaline Phosphatase 59 U/L (38-126); Anion Gap 11.4 mEq/L (5-15); Aspartate Amino Transferase 53 U/L (17-59); Bilirubin,Total 0.7 mg/dl (0.2-1.3); Blood Urea Nitrogen 25 mg/dl (9-20); Calcium 9.3 mg/dl (8.4-10.2); Carbon Dioxide 27 mmol/L (22.0-30.0); Chloride 107 mmol/L (98-107); Chol/HDL Ratio 4.8 (1-3.5); Cholesterol 186 mg/dl (140-200); Estimated Glomerular Filt Rate 37 ml/min (>60); GFR (African American) 45 ML/MIN (>60); Globulin 3.2 g/dL (1.3-3.2); Glucose 87 mg/dl (74-100); HDL Cholesterol 39 mg/dl (40-60); Potassium 4.4 mmoL/L (3.5-5.1); Sodium 141 mmol/L (136-145); Total Protein,Serum 7.5 g/dl (6.3-8.2); Triglycerides 138 mg/dl (30-150); VLDL Cholesterol 28 mg/dL (0-40)
[2024-04-12 20:19] LABS: Hemoglobin A1C 5.9 % (4.0-6.0)
[2024-04-12 20:21] LABS: Direct LDL Cholesterol 115.69 mg/dL (100-129)
[2024-04-12 20:40] LABS: Creatinine,Urine Random 244 mg/dL (Not Estab.)
[2024-04-12 20:41] LABS: Prostate Specific Ag Screen 3.8 ng/ml (0.0-4.0); Thyroid Stimulating Hormone 2.91 uIU/mL (0.465-4.68)
[2024-04-12 20:44] LABS: Microalbumin/Creatinine Ratio 6.9
== END 2024-04-12 23:59 | disposition home or self-care (01) ==
LOC: LAB.DROPOF 04-13 10:51
PROVIDERS: PCP Family Medicine; Visit Provider Family Medicine
DX: I11.9 Hypertensive heart disease without heart failure (principal); I25.10 Atherosclerotic heart disease of native coronary artery without angina pectoris; Z12.5 Encounter for screening for malignant neoplasm of prostate; Z13.1 Encounter for screening for diabetes mellitus; Z87.891 Personal history of nicotine dependence
CPT/HCPCS: 80050; 80053; 80061; 82043; 82570; 83036; 84443; 85025; G0103

== ENCOUNTER 2024-05-22 09:37 | Outpatient (CLI) | payer MEDICARE, SELFPAY ==
[2024-05-22 09:54] LABS: MANUAL DIFFERENTIAL MANUAL DIFFERENTIAL (MANUAL DIFF); Microscopic, Urine URINE MICROSCOPIC (MICROSCOPIC)
[2024-05-22 10:47] LABS: Appearance,Urine CLEAR (Clear); Bilirubin,Urine Negative (Negative); Blood, Urine Negative (Negative); Color,Urine YELLOW (Yellow); Glucose,Urine (UA) 3+ (Negative); Ketones,Urine Negative (Negative); Leukocyte Esterase,Urine Negative (Negative); Nitrate,Urine Negative (Negative); Protein,Urine Negative (Negative); Specific Gravity, Urine 1.025 (1.005-1.030); Urobilinogen,Urine 0.2 EU/dl (0.2)
[2024-05-22 10:59] LABS: Microalbumin/Creatinine Ratio 14.9
[2024-05-22 11:03] LABS: Anion Gap 11.7 mEq/L (5-15); Blood Urea Nitrogen 33 mg/dl (9-20); Calcium 9.4 mg/dl (8.4-10.2); Carbon Dioxide 28 mmol/L (22.0-30.0); Chloride 107 mmol/L (98-107); Estimated Glomerular Filt Rate 37 ml/min (>60); GFR (African American) 45 ML/MIN (>60); Glucose 96 mg/dl (74-100); Magnesium 2.3 mg/dl (1.6-2.3); Phosphorous 3.3 mg/dl (2.5-4.5); Potassium 4.7 mmoL/L (3.5-5.1); Sodium 142 mmol/L (136-145)
[2024-05-22 11:04] LABS: Creatinine,Urine Random 173 mg/dL (Not Estab.)
[2024-05-22 11:13] LABS: Intact Parathyroid Hormone 59.6 pg/mL (7.5-53.5)
[2024-05-22 11:16] LABS: 25-OH Vitamin D, Total 29.4 ng/mL (30-100)
[2024-05-22 11:21] LABS: Squamous Epithelial Cell,Urine Occasional #/hpf (0-5)
[2024-05-22 11:26] LABS: Basophils # 0.1 K/mm3 (0-0.2); Eosinophils # 0.2 K/mm3 (0.0-0.4); Eosinophils % 2.8 % (0.1-12.0); Hematocrit 50.8 % (42.0-52.0); Lymphocytes # 1.8 K/mm3 (0.7-4.5); Lymphocytes % 28.3 % (10-50); Mean Corpuscular HGB Conc 31.5 g/dL (31.8-35.4); Mean Corpuscular Hemoglobin 30.1 pg (27.0-31.2); Mean Corpuscular Volume 95.5 fl (80-94); Mean Platelet Volume 8.3 fl (7.4-10.4); Monocytes # 0.4 K/mm3 (0.1-1.0); Monocytes % 6.2 % (1.7-9.3); Neutrophils # 3.9 K/mm3 (1.8-7.8); Neutrophils % 61.7 % (37.0-80.0); Platelet Count 217 K/mm3 (142-424); Red Blood Count 5.33 M/mm3 (4.60-6.20); Red Cell Distribution Width 14.8 % (11.5-17.5); White Blood Count 6.3 K/mm3 (4.8-10.8)
[2024-05-22 13:06] LABS: Lymphocytes % 21 % (10-50); Monocytes % 4 % (2-9); Neutrophils % 75 % (42-76); Total Cells Counted 100
[2024-05-22 13:07] LABS: Platelet Estimate Normal; RBC Morphology Normal
--- NOTE | 2024-05-22 14:00 | US_ITS ---
FINAL REPORT TECHNIQUE: Ultrasound images of the kidneys and bladder were obtained. CLINICAL HISTORY: htn -- ckd FINDINGS: The right kidney measures 12.5 millimeters in length. It is normal in echogenicity. There is no hydronephrosis. There is a 4.5 cm right renal cyst. The left kidney measures 12.0 cm in length. It is normal in echogenicity. There is no hydronephrosis. Spleen is normal. Liver is fatty infiltrated. The urinary bladder is unremarkable. IMPRESSION: No hydronephrosis. 4.5 cm right renal cyst. Reviewed, Interpreted and Dictated by Deondre Valdovinos III, MD Transcribed by Mary Moseley Authenticated and . [facility]
== END 2024-05-22 23:59 | disposition home or self-care (01) ==
LOC: RAD 09:38
PROVIDERS: PCP Family Medicine; Visit Provider Nurse Practitioner
DX: I10 Essential (primary) hypertension (principal); N18.32 Chronic kidney disease, stage 3b
CPT/HCPCS: 36415; 76770; 80048; 81001; 82043; 82306; 82570; 83735; 83970; 84100; 84550; 85007; 85014; 85018; 85048; 85049

== ENCOUNTER 2024-07-04 10:00 | Day surgery (SDC) | payer MEDICARE, SELFPAY ==
[2024-06-30 14:47] VITALS: BMI 35.7
[2024-07-04 10:23] VITALS: BP 126/69; PULSE 70; RESP 18; O2SAT 95
[2024-07-04 10:28] LABS: POC Glucose,Bedside 69 (70-110)
--- NOTE | 2024-07-04 10:29 | EXP.ANES.CKL ---
[facility] Disclaimer: The information contained in this section may have been updated after the patient was seen, as this information can be updated by other users. Medical History Stage 3 chronic kidney disease CAD in [place] artery Angina pectoris Typical angina Congestive heart failure Hypertension Hypothyroid Diabetes mellitus, type 2 Asthma Allergic rhinitis Reactive airway disease with wheezing Wheezing Dyspnea on exertion Smoking greater than 30 pack years Nocturnal hypoxemia History of sleep apnea Dyspnea on exertion Surgical History Stented coronary artery History of colonoscopy History of gastric surgery Family History Other Diabetes Hypertension Stroke Social History Smoking Status: Former smoker alcohol intake: current alcohol intake frequency: holidays/special occasions only substance use type: denies use current occupational status: retired Travel in the last 8 weeks: Inside the [place] household members: spouse housing: house [facility] Anesthesia Checklist Patient Identification Patient Identification: Arm Band and Verbal (Name & ) Structural Data Admitted From: Home Planned Operative Procedure/s: Colonoscopy Consent for Planned Operative Procedure(s) Verified: Yes Verified Documents: Surgical Consent and History and Physical NPO Status Verified Time NPO: 04:00 Chart Verification Results Verified: CBC, BMP and ECG Additional verifications Fingerstick Blood Glucose: 69 Patient : No Anesthesia Reactions: No Hx Blood Transfusions: No Cardiovascular Assessment Heart Sounds: S1 & S2 Pulse Rhythm: Irregular Peripheral Edema: No Airway Assessment Mallampati Score:: Class III C-Spine Mobility Assessed: Yes (FROM) TMJ Mobility Assessed: Yes Dentition: Poor Dentition (Many missing. Nothing loose per pt.) Neurological Assessment Level of Consciousness: Awake, Alert, Appropriate and Follows Commands Hx Seizures: No Numbness or tingling in extremities: No Anesthesia Plan Anesthesia Risk discussed: Yes Anesthesia Plan: Verified ASA Class: III Anesthesia Type: MAC
[2024-07-04] MEDS: LACTATED RINGERS 1000ML 1,000 ML 25 ML IV (10:30)
--- NOTE | 2024-07-04 10:32 | HMH.SCOPE ---
Procedure: Date: 07/04/24 Patient Date of :: 1950 Procedure Performed:: Colonoscopy with polypectomy Indications:: screening Performing Provider:: Kwame Gavin MD Referring Provider:: . Sedation:: Monitored anesthesia care Procedure:: After informed consent was obtained the patient was taken to the endoscopy suite. Sedation ensued after the patient was transferred to the left lateral decubitus position. Pulse, blood pressure, and oxygen saturation were monitored throughout the procedure. Digital rectal exam revealed no significant abnormality. The colonoscope was placed in position. The entire colon was evaluated. The colonoscope was carefully removed and the patient was transferred to recovery in stable condition. Please see findings and specimens below for detail. Findings:: Bowel preparation relatively poor Significant tortuosity Profound spasticity/lack of relaxation Hemorrhoidal cushions Multiple complex polyps (see specimens) Specimens:: Cecal polyp (cold biopsy forceps) --note: Profound spasticity limited visualization and confirmation of complete polyp removal 4 adjacent complex lobulated transverse colon polyps (hot snare) Complex lobulated partially pedunculated distal transverse colon polyp (hot snare) 4 adjacent complex lobulated polyps at 65 cm (hot snare) Polyp at 10 cm (hot snare) Recommendations:: Timing of repeat colonoscopy is pending pathology will likely be around 3 months with extended/alternate bowel preparation secondary to above findings. I recommend repeat colonoscopy to be performed by the gastroenterology service secondary to above findings. Complications:: No immediate with the exception of limited visualization secondary to relatively poor bowel preparation and profound spasticity/lack of relaxation. Estimated blood obtained (mL): 1 Colonoscopy Component Colonoscopy Component Was a colonoscopy performed during today's procedure?: Yes Recommended follow up colonoscopy of at least 10 years?: No If no, follow up colonoscopy recommended in ___ years?: (See above) Reason for not recommending >/= 10 yr follow-up interval?: (See above)
[2024-07-04 10:44] VITALS: O2SAT 100
[2024-07-04 11:32] VITALS: BP 92/56; PULSE 77; RESP 14; TEMP 37; O2SAT 90
[2024-07-04 11:42] VITALS: BP 90/53; PULSE 78; RESP 16; O2SAT 92
[2024-07-04 11:51] VITALS: BP 98/51; PULSE 70; RESP 16; O2SAT 93
[2024-07-04 12:00] VITALS: BP 112/64; PULSE 76; RESP 16; O2SAT 93
== END 2024-07-04 12:05 | disposition home or self-care (01) ==
PROVIDERS: PCP Family Medicine; Visit Provider Surgery
PROC: 0DJD8ZZ Inspection of Lower Intestinal Tract, Via Natural or Artificial Opening Endoscopic (ICD-10-PCS; CPT 45380; principal; 2024-07-04 11:30)
DX: Z12.11 Encounter for screening for malignant neoplasm of colon (principal); K64.9 Unspecified hemorrhoids; K63.5 Polyp of colon; E11.8 Type 2 diabetes mellitus with unspecified complications; Z79.84 Long term (current) use of oral hypoglycemic drugs
CPT/HCPCS: 45380; 45385; 82962; 88305; J2704; J7120

== ENCOUNTER 2024-09-26 09:38 | Outpatient (CLI) | payer MEDICARE, SELFPAY ==
[2024-09-26 09:48] LABS: Microscopic, Urine URINE MICROSCOPIC (MICROSCOPIC)
[2024-09-26 10:09] LABS: Basophils # 0.1 K/mm3 (0-0.2); Basophils % 0.8 % (0.1-2.0); Eosinophils # 0.2 K/mm3 (0.0-0.4); Eosinophils % 2.6 % (0.1-12.0); Hematocrit 46.9 % (42.0-52.0); Hemoglobin 15.6 g/dL (14.1-18.0); Lymphocytes # 2.1 K/mm3 (0.7-4.5); Lymphocytes % 34.9 % (10-50); Mean Corpuscular HGB Conc 33.3 g/dL (31.8-35.4); Mean Corpuscular Hemoglobin 29.7 pg (27.0-31.2); Mean Corpuscular Volume 89.2 fl (80-94); Mean Platelet Volume 9.4 fl (7.4-10.4); Monocytes # 0.6 K/mm3 (0.1-1.0); Monocytes % 9.1 % (1.7-9.3); Neutrophils # 3.2 K/mm3 (1.8-7.8); Neutrophils % 52.4 % (37.0-80.0); Platelet Count 179 K/mm3 (142-424); Red Blood Count 5.26 M/mm3 (4.60-6.20); Red Cell Distribution Width 13.9 % (11.5-17.5); White Blood Count 6.1 K/mm3 (4.8-10.8)
[2024-09-26 10:29] LABS: Appearance,Urine CLEAR (Clear); Bilirubin,Urine Negative (Negative); Blood, Urine Negative (Negative); Color,Urine YELLOW (Yellow); Glucose,Urine (UA) 3+ (Negative); Ketones,Urine Negative (Negative); Leukocyte Esterase,Urine Negative (Negative); Nitrate,Urine Negative (Negative); PH,Urine 6.5 (5.0-8.5); Protein,Urine Negative (Negative); Urobilinogen,Urine 0.2 EU/dl (0.2)
[2024-09-26 11:28] LABS: Bacteria,Urine 1+ /lpf
[2024-09-26 11:36] LABS: Chloride 105 mmol/L (98-107); Sodium 139 mmol/L (136-145)
[2024-09-26 11:38] LABS: Blood Urea Nitrogen 21 mg/dl (9-20); Carbon Dioxide 28 mmol/L (22.0-30.0); Estimated Glomerular Filt Rate 37 ml/min (>60); GFR (African American) 45 ML/MIN (>60)
[2024-09-26 11:39] LABS: Calcium 9.2 mg/dl (8.4-10.2); Glucose 96 mg/dl (74-100); Magnesium 2.3 mg/dl (1.6-2.3); Phosphorous 3.2 mg/dl (2.5-4.5)
[2024-09-26 13:07] LABS: Intact Parathyroid Hormone 63.6 pg/mL (7.5-53.5)
[2024-09-26 13:11] LABS: Creatinine,Urine Random 193 mg/dL (Not Estab.)
[2024-09-26 16:03] LABS: 25-OH Vitamin D, Total 41.1 ng/mL (30-100)
== END 2024-09-26 23:59 | disposition home or self-care (01) ==
LOC: LAB 09:40
PROVIDERS: PCP Family Medicine; Visit Provider Nurse Practitioner
DX: I12.9 Hypertensive chronic kidney disease with stage 1 through stage 4 chronic kidney disease, or unspecified chronic kidney disease (principal); N18.30 Chronic kidney disease, stage 3 unspecified; Z87.891 Personal history of nicotine dependence
CPT/HCPCS: 36415; 80048; 81001; 82306; 82570; 83735; 83970; 84100; 84156; 84550; 85025; 87086

== ENCOUNTER 2024-10-13 12:10 | Outpatient (CLI) | payer MEDICARE, SELFPAY ==
[2024-10-13 19:15] LABS: Chol/HDL Ratio 4.6 (1-3.5); Cholesterol 175 mg/dl (140-200); HDL Cholesterol 38 mg/dl (40-60); Triglycerides 135 mg/dl (30-150); VLDL Cholesterol 27 mg/dL (0-40)
[2024-10-13 19:26] LABS: Direct LDL Cholesterol 116.05 mg/dL (100-129)
[2024-10-13 19:48] LABS: Thyroid Stimulating Hormone 3.18 uIU/mL (0.465-4.68)
[2024-10-13 19:51] LABS: 25-OH Vitamin D, Total 26.1 ng/mL (30-100)
== END 2024-10-13 23:59 | disposition home or self-care (01) ==
LOC: LAB.DROPOF 10-14 09:56
PROVIDERS: PCP Family Medicine; Visit Provider Family Medicine
DX: E55.9 Vitamin D deficiency, unspecified (principal); I10 Essential (primary) hypertension; E03.9 Hypothyroidism, unspecified; Z87.891 Personal history of nicotine dependence
CPT/HCPCS: 80061; 82306; 84443

== ENCOUNTER 2024-12-01 09:30 | Outpatient (CLI) | payer MEDICARE, SELFPAY ==
[2024-12-01 09:55] VITALS: PULSE 51; PULSE 52
[2024-12-01] MEDS: ALBUTEROL 0.083% 2.5 MG/3 ML NEB IH (09:55)
== END 2024-12-01 23:59 | disposition home or self-care (01) ==
LOC: RT 09:30
PROVIDERS: PCP Family Medicine; Visit Provider Internal Medicine Pulmonary Disease
DX: J44.9 Chronic obstructive pulmonary disease, unspecified (principal)
CPT/HCPCS: 94010; 94640; J7613

== ENCOUNTER 2024-12-21 10:30 | Outpatient (CLI) | payer MEDICARE, SELFPAY ==
[2024-12-21 18:44] LABS: Creatinine,Urine Random 241 mg/dL (Not Estab.)
[2024-12-21 18:46] LABS: Microalbumin/Creatinine Ratio 4.8
[2024-12-21 19:25] LABS: Albumin Level 4.2 g/dl (3.5-5.0); Chloride 103 mmol/L (98-107); Potassium 4.8 mmoL/L (3.5-5.1); Sodium 141 mmol/L (136-145)
[2024-12-21 19:27] LABS: Blood Urea Nitrogen 19 mg/dl (9-20)
[2024-12-21 19:28] LABS: Alanine Aminotransferase 62 U/L (12-78); Albumin/Globulin Ratio 1.4 (1.1-1.8); Alkaline Phosphatase 69 U/L (38-126); Anion Gap 15.8 mEq/L (5-15); Aspartate Amino Transferase 52 U/L (17-59); Bilirubin,Total 0.4 mg/dl (0.2-1.3); Calcium 9.6 mg/dl (8.4-10.2); Carbon Dioxide 27 mmol/L (22.0-30.0); Chol/HDL Ratio 1.7 (1-3.5); Cholesterol 77 mg/dl (140-200); Estimated Glomerular Filt Rate 35 ml/min (>60); GFR (African American) 42 ML/MIN (>60); Globulin 3.1 g/dL (1.3-3.2); Glucose 96 mg/dl (74-100); HDL Cholesterol 45 mg/dl (40-60); Total Protein,Serum 7.3 g/dl (6.3-8.2); Triglycerides 86 mg/dl (30-150); VLDL Cholesterol 17 mg/dL (0-40)
[2024-12-21 20:10] LABS: Direct LDL Cholesterol < 30.00 mg/dL (100-129)
== END 2024-12-21 23:59 | disposition home or self-care (01) ==
LOC: LAB.DROPOF 12-22 10:02
PROVIDERS: PCP Family Medicine; Visit Provider Family Medicine
DX: Z95.5 Presence of coronary angioplasty implant and graft (principal); I10 Essential (primary) hypertension
CPT/HCPCS: 80053; 80061; 82043; 82570

== ENCOUNTER 2025-03-29 10:06 | Outpatient (CLI) | payer MEDICARE, SELFPAY ==
--- OUTSIDE RECORDS SUMMARY | 2025-03-29 10:10 | XMS_ITS | Clinical Summary ---
Author Organization [facility] Address [address] [place] [address] Care Team Providers Care Marketing Development Specialist Name Role Phone Vick Camejo MD Primary Care Provider [phone] Social History Tobacco Use Types Packs/Day Years Used Date Smoking Tobacco: Never Assessed Sex and Gender Information Value Date Recorded Sex Assigned at Not on file Legal Sex Male 9:02 AM EDT Gender Identity Not on file Sexual Orientation Not on file Plan of Treatment Health Maintenance Due Date Last Done Comments [facility]-Depression Screening 1950 [facility]-Infant/Child/Adol SDOH Screenings 1950 [facility]- SDOH Screenings 1966 [facility]-Adult SDOH Screenings 1966 [facility]-DTaP,Tdap,and Td Vaccines (1 - Tdap) 11/14/1967 [facility]-Pneumococcal Vaccine: 50+ Years (2 of 2 - PPSV23) 07/23/2021 07/23/2020, 12/28/2017 [facility]-RSV Vaccine: 60+ Years or (1 - 1-dose 75+ series) 11/14/2023 [id number] Vaccine (2023- season) 2024 05/21/2022, 06/08/2021, 11/11/2020, Additional history exists [facility]-Influenza Vaccine (#1) 2025 06/26/2013 [facility]-Zoster Vaccines Completed 01/14/2022, HPV Vaccines Aged Out No longer eligi ble based on patient's age to complete this topic [facility]-HIB Vaccines Aged Out No longer e ligible based on patient's age to complete this topic [facility]-Hepatitis A Vaccines Aged Out No longer eligible based on patient's age to complete this topic [facility]-IPV Vaccines Aged Out No longer e ligible based on patient's age to complete this topic [facility]-Rotavirus Vaccines Aged Out No lo nger eligible based on patient's age to complete this topic Insurance Care Teams Marketing Development Specialist Relationship Specialty Start Date End Date Vick Camejo MD PCP - General 09/13/22
--- OUTSIDE RECORDS SUMMARY | 2025-03-29 10:10 | XMS_ITS | Data Portability ---
Author Organization [facility] Address [address] [place] [address] Care Team Providers Care Calculator Operator Name Role Phone VICK CAMEJO Primary Care Provider Assessment Encounter Date Assessment Date Assessment LastModified by Organization Details LastModified Time 01/11/2018 01/11/2018 Skin lesion right forehead approx. 6-8 mm [place] biopsy today and sent for pathology [email or web address] Not available 01/21/2018 08:39:38 01/18/2018 01/18/2018 suture removal today. [email or web address] Not available 01/21/2018 08:43:14 11/15/2024 11/15/2024 Presenting to update local provider jada Not available 11/21/2024 21:01:37 Plan of Treatment Reminders Order Date Submit Date Provider Last Modified By Organization Details Last Modified Time Details Appointments None recorded. Lab pathology study 2017 018 [facility], [address] , [facility], [place], [address], 8 14:36:49 Referral None recorded. Procedures None recorded. Surgeries None recorded. Imaging None recorded. Medication Orders None recorded. Patient TargetsNo targets recorded. Patient Instructions Encounter Date Encounter Id Patient Instructions Last Modified By Organization Details Last Modified Time 07/31/2024 [id number] All questions answered and pt/guardian satisfied with treatment plan. Call with changes RTC or ED if symptoms change or worsen Keep next interval checkup Cont. chronic meds as prescribed Chronic conditions are stable Discussed natural and expected course of this diagnosis and need to alert the office if symptoms do not follow expected course or if any worsens Not available 07/31/2024 08:49:17 08/16/2024 [id number] All questions answered and pt/guardian satisfied with treatment plan. Call with changes RTC or ED if symptoms change or worsen Keep next interval checkup Cont. chronic meds as prescribed Chronic conditions are stable Discussed natural and expected course of this diagnosis and need to alert the office if symptoms do not follow expected course or if any worsens [email or web address] Not available 08/17/2024 19:32:50 11/15/2024 [id number] hypothyroidism: care instructions [email or web address] Not available 11/21/2024 21:02:10 All questions answered and pt/guardian satisfied with treatment plan. Call with changes RTC or ED if symptoms change or worsen Keep next interval checkup Cont. chronic meds as prescribed Chronic conditions are stable Discussed natural and expected course of this diagnosis and need to alert the office if symptoms do not follow expected course or if any worsens [email or web address] Not available 11/21/2024 21:02:10 Reason for Referral None Reported. Results Created Date Observation Date Name Description Value Unit Range Abnormal Flag Note LastModifiedBy Organization Detail LastModifiedTime 12/29/19 18 12/29/2017 CBC w/ auto diff WBC 6.3 x10e3 /uL 3.4-10 .8 Not Available [facility] ([facility]) [address] [place], [address], 12/29/2017 09:38:08 12/29/19 18 12/29/2017 CBC w/ auto diff RBC 5.36 x10e6 /uL 4.14-5 .80 Not Available [facility] ([facility]) [address] [place], [address], 12/29/2017 09:38:08 12/29/19 18 12/29/2017 CBC w/ auto diff hemoglobin 15.6 g/dL 13.0-1 7.7 Not Available [facility] ([facility]) [address] [place], [address], 12/29/2017 09:38:08 12/29/19 18 12/29/2017 CBC w/ auto diff hematocrit 47.1 % 37.5-5 1.0 Not Available [facility] ([facility]) [address] [facility], [place], [address], 12/29/2017 09:38:08 12/29/19 18 12/29/2017 CBC w/ auto diff MCV 88 fL 79-97 Not Available [facility] ([facility]) [address] [facility], [place], [address], 12/29/2017 09:38:08 12/29/19 18 12/29/2017 CBC w/ auto diff MCH 29.1 pg 26.6-3 3.0 Not Available [facility] ([facility]) [address] [facility], [place], [address], 12/29/2017 09:38:08 12/29/19 18 12/29/2017 CBC w/ auto diff MCHC 33.1 g/dL 31.5-3 5.7 Not Available [facility] ([facility]) [address] [facility], [place], [address], 12/29/2017 09:38:08 12/29/19 18 12/29/2017 CBC w/ auto diff RDW 14.4 % 12.3-1 5.4 Not Available [facility] ([facility]) [address] [facility], [place], [address], 12/29/2017 09:38:08 12/29/19 18 12/29/2017 CBC w/ auto diff platelets 201 x10e3 /uL 150-37 9 Not Available [facility] ([facility]) [address] [place], [address], 12/29/2017 09:38:08 12/29/19 18 12/29/2017 CBC w/ auto diff neutrophils 52 % not estab. Not Available [facility] ([facility]) [address] [facility], [place], [address], 12/29/2017 09:38:08 12/29/19 12/29/2017 CBC w/ auto diff lymphs 37 % not estab. Not Available [facility] ([facility]) [address] [facility], [place], [address], 12/29/2017 09:38:08 12/29/19 18 12/29/2017 CBC w/ auto diff monocytes 7 % not estab. Not Available [facility] ([facility]) [address] [facility], [place], [address], 12/29/2017 09:38:08 12/29/19 18 12/29/2017 CBC w/ auto diff eos 3 % not estab. Not Available [facility] ([facility]) [address] [place], [address], 12/29/2017 09:38:08 12/29/19 18 12/29/2017 CBC w/ auto diff basos 1 % not estab. Not Available [facility] ([facility]) [address] [facility], [place], [address], 12/29/2017 09:38:08 12/29/19 18 12/29/2017 CBC w/ auto diff immature cells HOUSEKEEPING ASSOCIATE Not Available [facility] ([facility]) [address] [facility], [place], [address], 12/29/2017 09:38:08 12/29/19 18 12/29/2017 CBC w/ auto diff neutrophils (absolute) 3.3 x10e3 /uL 1.4-7. 0 Not Available [facility] ([facility]) [address] [place], [address], 12/29/2017 09:38:08 12/29/19 18 12/29/2017 CBC w/ auto diff lymphs (absolute) 2.3 x10e3 /uL 0.7-3. 1 Not Available [facility] ([facility]) [address] [place], [address], 12/29/2017 09:38:08 12/29/19 18 12/29/2017 CBC w/ auto diff monocytes(ab solute) 0.4 x10e3 /uL 0.1-0. 9 Not Available [facility] ([facility]) [address] [facility], [place], [address], 12/29/2017 09:38:08 12/29/19 18 12/29/2017 CBC w/ auto diff eos (absolute) 0.2 x10e3 /uL 0.0-0. 4 Not Available [facility] ([facility]) [address] [facility], [place], [address], 12/29/2017 09:38:08 12/29/19 18 12/29/2017 CBC w/ auto diff baso (absolute) 0.0 x10e3 /uL 0.0-0. 2 Not Available [facility] ([facility]) [address] [facility], [place], [address], 12/29/2017 09:38:08 12/29/19 18 12/29/2017 CBC w/ auto diff immature granulocytes 0 % not estab. Not Available [facility] ([facility]) [address] [facility], [place], [address], 12/29/2017 09:38:08 12/29/19 18 12/29/2017 CBC w/ auto diff immature grans (abs) 0.0 x10e3 /uL 0.0-0. 1 Not Available [facility] ([facility]) [address] [facility], [place], [address], 12/29/2017 09:38:08 12/29/19 18 12/29/2017 CBC w/ auto diff NRBC HOUSEKEEPING ASSOCIATE Not Available [facility] ([facility]) [address] [facility], [place], [address], 12/29/2017 09:38:08 12/29/19 18 12/29/2017 CBC w/ auto diff hematology comments: HOUSEKEEPING ASSOCIATE Not Available [facility] ([facility]) [address] [facility], [place], [address], 12/29/2017 09:38:08 12/29/19 18 12/29/2017 CMP, serum or plasm a glucose 83 mg/dL 65-99 Not Available [facility] ([facility]) [address] [place], [address], 12/29/2017 09:38:09 12/29/19 18 12/29/2017 CMP, serum or plasm a BUN 17 mg/dL 8-27 Not Available [facility] ([facility]) [address] [place], [address], 12/29/2017 09:38:09 12/29/19 18 12/29/2017 CMP, serum or plasm a creatinine 1.23 mg/dL 0.76-1 .27 Not Available [facility] ([facility]) [address] [place], [address], 12/29/2017 09:38:09 12/29/19 18 12/29/2017 CMP, serum or plasm a eGFR if nonafricn AM 60 mL/mi n/1.7 3 >59 Not Available [facility] ([facility]) [address] [place], [address], 12/29/2017 09:38:09 12/29/19 18 12/29/2017 CMP, serum or plasm a eGFR if africn AM 69 mL/mi n/1.7 3 >59 Not Available [facility] ([facility]) [address] [place], [address], 12/29/2017 09:38:09 12/29/19 18 12/29/2017 CMP, serum or plasm a BUN/creatini ne ratio 14 10-24 Not Available [facility] ([facility]) [address] [place], [address], 12/29/2017 09:38:09 12/29/19 18 12/29/2017 CMP, serum or plasm a sodium 143 mmol/ L 134-14 4 Not Available [facility] ([facility]) [address] [place], [address], 12/29/2017 09:38:09 12/29/19 18 12/29/2017 CMP, serum or plasm a potassium 4.9 mmol/ L 3.5-5. 2 Not Available [facility] ([facility]) [address] [place], [address], 12/29/2017 09:38:09 12/29/19 18 12/29/2017 CMP, serum or plasm a chloride 103 mmol/ L 96-106 Not Available [facility] ([facility] [address] [place], [address], 12/29/2017 09:38:09 12/29/1912/29/2017 CMP, serum or plasm a carbon dioxide, total 23 mmol/ L 18-29 Not Available [facility] ([facility] [address] [facility] [place], [address], 12/29/2017 09:38:09 12/29/19 18 12/29/2017 CMP, serum or plasm a calcium 9.2 mg/dL 8.6-10 .2 Not Available [facility] ([facility]) [address] [place], [address], 12/29/2017 09:38:09 12/29/19 18 12/29/2017 CMP, serum or plasm a protein, total 7.5 g/dL 6.0-8. 5 Not Available [facility] ([facility]) [address] [facility] [place], [address], 12/29/2017 09:38:09 12/29/1912/29/2017 CMP, serum or plasm a albumin 4.5 g/dL 3.6-4. 8 Not Available [facility] ([facility]) [address] [place], [address], 12/29/2017 09:38:09 12/29/19 18 12/29/2017 CMP, serum or plasm a globulin, total 3.0 g/dL 1.5-4. 5 Not Available [facility] ([facility]) [address] [facility] [place], [address], 12/29/2017 09:38:09 12/29/19 18 12/29/2017 CMP, serum or plasm a A/G ratio 1.5 1.2-2. 2 Not Available [facility] ([facility]) [address] [facility] [place], [address], 12/29/2017 09:38:09 12/29/19 18 12/29/2017 CMP, serum or plasm a bilirubin, total 0.4 mg/dL 0.0-1. 2 Not Available [facility] ([facility]) [address] [facility] [place], [address], 12/29/2017 09:38:09 12/29/19 18 12/29/2017 CMP, serum or plasm a alkaline phosphatase 79 IU/L 39-117 Not Available [facility] [address] [facility] [place], [address], 12/29/2017 09:38:09 12/29/19 18 12/29/2017 CMP, serum or plasm a AST (SGOT) 20 IU/L 0-40 Not Available [facility] ([facility]) [address] [facility] [place], [address], 12/29/2017 09:38:09 12/29/19 18 12/29/2017 CMP, serum or plasm a ALT (SGPT) 30 IU/L 0-44 Not Available [facility] ([facility]) [address] [facility] [place], [address], 12/29/2017 09:38:09 12/29/19 18 12/29/2017 lipid panel , serum cholesterol, total 205 mg/dL 100-19 9 above high normal Not Available [facility] ([facility]) [address] [facility] [place], [address], 12/29/2017 09:38:10 12/29/19 18 12/29/2017 lipid panel , serum triglyceride s 154 mg/dL 0-149 above high normal Not Available [facility] ([facility]) [address] [place], [address], 12/29/2017 09:38:10 12/29/19 18 12/29/2017 lipid panel , serum HDL cholesterol 34 mg/dL >39 below low normal Not Available [facility] ([facility]) [address] [place], [address], 12/29/2017 09:38:10 12/29/19 18 12/29/2017 lipid panel , serum VLDL cholesterol chandler 31 mg/dL 5-40 Not Available [facility] ([facility]) [address] [place], [address], 12/29/2017 09:38:10 12/29/19 18 12/29/2017 lipid panel , serum LDL cholesterol calc 140 mg/dL 0-99 above high normal Not Available [facility] ([facility]) [address] [place], [address], 12/29/2017 09:38:10 12/29/19 18 12/29/2017 lipid panel , serum comment: HOUSEKEEPING ASSOCIATE Not Available [facility] ([facility]) [address] [place], [address], 12/29/2017 09:38:10 12/29/1912/29/2017 TSH, ultra -sens itive , serum TSH 3.300 uIU/m L 0.450- 4.500 Not Available [facility] ([facility]) [address] [place], [address], 12/29/2017 09:38:10 12/29/19 18 12/29/2017 PSA, serum or plasm a prostate specific Ag, serum 3.8 NG/mL 0.0-4. 0 Neha ECLIA metho dolog y. Accor jasmin to the Ameri can Urolo gical Ass[employer] iatio n, Serum PSA shoul d decre ase and remai n at undet ectab le level s after radic al prost atect sri. The AUA defin es bioch emica l recur rence as an initi al PSA value 0.2 ng/mL or great er follo wed by a subse quent confi rmato ry PSA value 0.2 ng/mL or great er. Value s obtai nhan with diffe rent assay metho ds or kits canno t be used inter reyes eably . Resul ts canno t be inter prete d as absol soto evide nce of the prese nce or absen ce of [facility] disea se. Not Available [facility] ([facility]) [address] [facility], [place], [address], 12/29/2017 09:38:11 12/29/19 18 12/29/2017 hepat itis C Ab, signa l-to- cutof f, serum or plasm a hep C virus Ab <0.1 s/co_ ratio 0.0-0. 9 Negat ty: < 0.8 Indet ermin ate: 0.8 - 0.9 Posit ty: > 0.9 The CDC recom mends that a posit ty HCV antib leni resul t be follo wed up with a HCV Nucle ic Acid Ampli ficat ion test (5507 13). Not Available [facility] ([facility]) [address] [facility], [place], [address], 12/29/2017 09:38:12 01/12/20 18 01/13/2018 patho logy study . COMMEN T Mater ial submi tted: . RIGHT FOREH EAD Not Available [facility] ([facility]) [address] [place], [address], 01/13/2018 14:36:48 01/12/20 18 01/13/2018 patho logy study . COMMEN T Clini chandler histo ry: . D49.2 Not Available [facility] ([facility]) [address] [place], [address], 01/13/2018 14:36:48 01/12/20 18 01/13/2018 patho logy study . PATY Parker Diagn osis: Skin biops y, right fore ead: - Infla med sebor rheic kerat osis. PIA/0 2017 Not Available [facility] ([facility]) [address] [place], [address], 01/13/2018 14:36:48 01/12/20 18 01/13/2018 patho logy study . COMMWOLFGANG quintanilla d: . Bruce mancuso MD, Patho logis t Not Available [facility] ([facility]) [address] [place], [address], 01/13/2018 14:36:48 01/12/20 18 01/13/2018 patho logy study . COMMWOLFGANG Parker Gross descr iptio n: . Recei elias in forma gorge, label ed righ t fore ead , is a pettit skin punch biops y measu ring [address] and 2 mm in depth , with a 7 x 4 x 2 mm ill-d efine d brown crust y nodul e on the surfa ce. Trise cted and entir naya submi tted in one casse tte. AG/ms AMA/M SC Not Available [facility] ([facility]) [address] [place], [address], 01/13/2018 14:36:48 01/12/20 18 01/13/2018 patho logy study . COMMWOLFGANG T Patho logis t provi ded ICD-1 0: L82.1 Not Available [facility] ([facility]) [address] [facility], [place], [address], 01/13/2018 14:36:48 01/12/20 18 01/13/2018 patho logy study . COMMWOLFGANG T CPT . 26347 1 Not Available [facility] ([facility]) [address] [facility], [place], [address], 01/13/2018 14:36:48 Result Notes None recorded. Problems Name Problem SNOMED Code Status Onset Date Resolution Date Notes Provider Name and Address Organization Details Recorded Time Delay when starting to pass urine 6204014 Active 2014 Crystal Iram [place], [place] - [facility] 9 13:41:53 Seasonal allergic rhinitis 933149993 Active 2015 Crystal Iram [place], [place] - [facility] 9 13:41:53 Diabetes mellitus 93210844 Completed 201512/22/2016 Celeste null, [place] - [facility] 7 11:14:51 Benign hypertensio n 08070627 Active 2015 Crystal Iram [place], [place] - [facility] 9 13:41:53 Mixed hyperlipide oli 816722457 Active 2015 Crystal Iram [place], [place] - [facility] 9 13:41:53 Environment al allergy 880517429 Active 2015 Crystal Iram [place], [place] - [facility] 9 13:41:53 Benign prostatic hyperplasia 719859292 Active 2015 Crystal Iram [place], [place] - [facility] 9 13:41:53 Cobalamin deficiency 848385866 Active 2015 Crystal Iram [place], [place] - [facility] 9 13:41:53 History of malignant neoplasm of stomach 400926155 Active 2015 Crystal Iram [place], [place] - [facility] 9 13:41:53 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 Procedures Surgical History Date Name Laterality Status Provider Name and Address Organization Details Recorded Time 06/21/20 24 Colonoscopy completed Ashly HERNANDEZ - [facility] 07/31/2024 08:14:39 06/25/20 23 Cardiac Cath completed Ashly HERNANDEZ - [facility] 07/31/2024 08:14:39 01/19/20 18 Suture/Staple removal completed Celeste Garcia [place] - [facility] 01/18/2018 12:02:01 01/12/20 18 Punch Biopsy completed Celeste HERNANDEZ - [facility] 01/12/2018 19:15:28 12/29/19 18 Advance Care Planning completed Myla HERNANDEZ - [facility] 12/28/2017 10:10:55 09/13/18 99 Cancer Surgery completed Ashly HERNANDEZ - [facility] 07/31/2024 08:14:39 09/13/18 99 Gastrointestinal Surgery completed Ashly HERNANDEZ - [facility] 07/31/2024 08:14:39 Gastrointestinal Surgery completed Celeste HERNANDEZ - [facility] 06/23/2016 12:59:40 Imaging Results None recorded. Procedure Notes None recorded. Medical Equipment None Reported. Allergies Allergen ID Allergen Name Allergen Category Reaction Reaction Severity Criticality Documentation Date Start Date Code Code System Note Provider Name and Address Organization Details Recorded Time 864729 adhesive environme nt,medica tion Not available Not available Not available 11/15/2024 71008 UNK Carlos Burnett PA-C [address], [place], [address], [place] - [facility] 5 09:02:37 28957 simvastat in medicatio n myalgias (muscle pain) Not available Not available 06/19/20162010 56798 RxNorm React ion: MYALA MORRIS; Not Available [facility] 6 09:01:05 33393 Medicinal product acting as adhesive (product) environme nt,medica tion rash Not available Not available 06/19/20162007 47797 2009 SNOMED React ion: Rash - local ized; Comme nt: adhes ty; Not Available [facility] 6 09:51:22 47773 Flomax medicatio n confusion Not available Not available 12/22/2016 14259 3 RxNorm Celeste [facility], [place] - [facility] 7 11:02:24 Medications Name Sig Start Date Stop Date Status Note LastModified by Organization Details LastModified Time Prescript ion - Prior Authoriza tion Request 12/28 completed RX- CIALIS Not Available Not Available Not Available losartan 50 mg tablet active Not Available Not Available Not Available Flomax 0.4 mg capsule take 1 capsule (0.4 mg) by oral route once daily 1/2 hour followin g the same meal each day 02/26 completed Flomax 0.4 mg oral capsule, extended release 24hr;Rec orded Status: Recorded on: 11/21/19 15 5:36PM;D iscontin ued Status: Disconti nued on: 02/27/20 15 2:56PM;U ser: [email or web address];In dication : Benign Prostati c Hypertro phy - (10.6000 00) Not Available Not Available Not Available furosemid e 40 mg tablet active Not Available Not Available Not Available levothyro xine 175 mcg tablet TAKE 1 TABLET DAILY 2017 active Not Available Not Available Not Avai lable potassium chloride ER 10 mEq capsule,e xtended release active Not Available Not Available Not Available Synthroid 200 mcg tablet active Not Available Not Available Not Available Claritin 10 mg tablet po qd 2007 active Claritin 10 mg oral tablet;R ecorded Status: Recorded on: 06/16/20 08 10:04PM; User: [email or web address] Not Available Not Available Not Available lisinopri l 20 mg tablet take 1 tablet (20 mg) by oral route once daily for 30 days 05/09 completed lisinopr il 20 mg oral tablet;R ecorded Status: Recorded on: 12/14/19 12 10:03AM; Disconti nued Status: Disconti nued on: 05/09/20 12 6:48PM;U ser: neuss;Es t. Completi on: 06/11/20 12;Indic ation: Hyperten jose guadalupe - (4907 ) Not Available Not Available Not Available Syringe 3 mL 20 gauge x 1 use as directed 06/26 completed Syringe 3cc/20Gx 1 3 mL 20 gauge x 1 miscella neous syringe; Recorded Status: Recorded on: 07/20/20 11 9:31AM;D iscontin ued Status: Disconti nued on: 06/26/20 13 3:08PM;U ser: [email or web address]; Est. Completi on: 11/17/19 12 Not Available Not Available Not Available Depo-Medr ol 80 mg/mL suspensio n for injection Take 1.5 mL by injectio n route. 12/28 completed Not Available Not Available Not Available Depo-Test osterone 200 mg/mL intramusc ular oil [id number] ks 06/26 completed Depo-Yuliana tosteron e 200 mg/mL intramus cular oil;Ronnie rded Status: Recorded on: 12/14/19 12 10:03AM; Disconti nued Status: Disconti nued on: 06/26/20 13 3:07PM;U ser: neuss;Es t. Completi on: 04/12/20 12;Indic ation: Male Hypogona dism - (1957 ) Not Available Not Available Not Available Daily Multivita min tablet take 1 tablet by oral route once daily with food 2008 active Daily Multivit lou Oral Tablet;R ecorded Status: Recorded on: 11/14/19 09 5:53PM;U ser: [email or web address]; Indicati on: Vitamin Deficien cy - () Not Available Not Available Not Available simvastat in 20 mg tablet take 1 tablet (20 mg) by oral route once daily in the evening for 30 days 10/20 completed simvasta tin 20 mg oral tablet;R ecorded Status: Recorded on: 07/23/20 09 12:55PM; Disconti nued Status: Disconti nued on: 10/20/19 11 6:54PM;U ser: [email or web address] ;Est. Completi on: 09/21/19 10;Indic ation: Hypercho lesterol emia - () Not Available Not Available Not Available cyanocoba karl (vit B-12) 1,000 mcg/mL injection solution inject 1 millilit er Q1wk for 90 days 2017 active cyanocob alamin (vitamin B-12) 1,000 mcg/mL injectio n solution ;Recorde d Status: Recorded on: 03/13/20 15 10:21AM; User: Pamela Hoover on: 03/07/20 16;Print ed: 03/13/20 15 Not Available Not Available Not Available Cipro 500 mg tablet take 1 tablet by oral route 2 times a day for 90 days 09/09 completed Cipro 500 mg oral tablet;R ecorded Status: Recorded on: 03/13/20 15 10:21AM; User: Pamela [email or web address] Completi on: 09/09/20 15;Print ed: 03/13/20 15 Not Available Not Available Not Available levothyro xine 150 mcg tablet po qd 07/23 completed levothyr oxine 150 mcg oral tablet;R ecorded Status: Recorded on: 06/16/20 08 10:04PM; Disconti nued Status: Disconti nued on: 07/23/20 09 12:55PM; User: nikos Not Available Not Available Not Available Elimite 5 % topical cream apply (thoroug hly massage into skin from head to soles of feet) by topical route once leave on for 8-14 hr, then remove by thorough washing 10/14/ 2013 04/08 /2014 completed Elimite 5 % topical cream;Re corded Status: Recorded on: 06/26/20 13 7:36PM;D iscontin ued Status: Disconti nued on: 12/20/19 14 8:45AM;U ser: neuss;Es t. Completi on: 06/28/20 13;Indic ation: Scabies - (1330 00) Not Available Not Available Not Available [facility] 10 mg tablet active Not Available Not Available Not Available Baby Aspirin 81 mg chewable tablet chew 1 tablet by oral route QD for 100 days do not take if you are allergic to aspirin or its componen ts, or have question s of gastroin testinal intolera nce 10/02 completed Baby Aspirin 81 mg oral tablet,ena whitaker; Recorded Status: Recorded on: 09/28/19 12 11:00AM; User: [email or web address];Es t. Completi on: 10/02/19 15 Not Available Not Available Not Available Viagra 100 mg tablet take 1 tablet (100 mg) by oral route once daily as needed approxim ately 1 hour before sexual activity 06/26 completed Viagra 100 mg oral tablet;R ecorded Status: Recorded on: 05/09/20 12 6:38PM;D iscontin ued Status: Disconti nued on: 06/26/20 13 3:07PM;U ser: neuss;Es t. Completi on: 11/05/19 13;Indic ation: Erectile Dysfunct ion - (10.6078 40) Not Available Not Available Not Available Pepcid 20 mg tablet po qd prn 06/26 completed Pepcid 20 mg oral tablet;R ecorded Status: Recorded on: 06/16/20 08 10:04PM; Disconti nued Status: Disconti nued on: 06/26/20 13 3:07PM;U ser: [email or web address] Not Available Not Available Not Available losartan 100 mg tablet TAKE 1 TABLET DAILY 2017 active Not Available Not Available Not Avai lable fluticaso ne propionat e 50 mcg/actua tion nasal spray,ele pension active Not Available Not Available Not Available Syringe 3 mL 25 gauge x 1 useevery weekwith b12 2015 active Syringe 3cc/25Gx 1 3 mL 25 gauge x 1 miscella neous syringe; Recorded Status: Recorded on: 01/13/20 16 5:47PM;U ser: neuss;Es t. Completi on: 01/08/20 17 Not Available Not Available Not Available Skelaxin 800 mg tablet take 1 tablet (800 mg) by oral route 3 times per day as needed for 30 days 10/20 completed Skelaxin 800 mg oral tablet;R ecorded Status: Recorded on: 07/18/20 09 4:54PM;D iscontin ued Status: Disconti nued on: 10/20/19 11 6:54PM;U ser: [email or web address] ;Est. Completi on: 10/16/19 10;Indic ation: Muscle Spasm - (13.7288 50);Prin trudy: 07/18/20 09 Not Available Not Available Not Available ezetimibe 10 mg tablet active Not Available Not Available Not Available metformin ER 750 mg tablet,ex tended release 24 hr TAKE 1 TABLET DAILY WITH EVENING MEAL active Not Available Not Available No t Available Levitra 20 mg tablet take 1 tablet (20 mg) by oral route once daily as needed approxim ately 1 hour before sexual activity 05/09 completed Levitra 20 mg oral tablet;R ecorded Status: Recorded on: 10/20/19 11 7:31PM;D iscontin ued Status: Disconti nued on: 05/09/20 12 6:38PM;U ser: bishopk; Est. Completi on: 04/18/20 11;Indic ation: Erectile Dysfunct ion - (10.6078 40) Not Available Not Available Not Available Cialis 5 mg tablet active Not Available Not Available No t Available Cyanacoba karl inject 1cc q week 10/30 completed Cyanacob alamin 1000mcg/ 1cc;Ronnie rded Status: Recorded on: 07/09/20 14 4:40PM;U ser: neuss;Es t. Completi on: 11/06/19 15 Not Available Not Available Not Available fenofibra te nanocryst allized 145 mg tablet active Not Available Not Available Not Available Symbicort 80 mcg-4.5 mcg/actua tion HFA aerosol inhaler active Not Available Not Available Not Available nebivolol 5 mg tablet active Not Available Not Available Not Available Onglyza 2.5 mg tablet take 1 tablet (2.5 mg) by oral route once daily for 30 days 05/09 completed Onglyza 2.5 mg oral tablet;R ecorded Status: Recorded on: 10/08/19 12 7:55PM;D iscontin ued Status: Disconti nued on: 05/09/20 12 6:38PM;U ser: neuss;Es t. Completi on: 09/02/20 12;Indic ation: Diabetes Mellitus , Type II - (250.00) Not Available Not Available Not Available Vitamin D3 50 mcg (2,000 unit) capsule take 1 tablet by oral route QD 06/26 completed Vitamin D-3 1000 units;Re corded Status: Recorded on: 05/09/20 12 5:52PM;D iscontin ued Status: Disconti nued on: 06/26/20 13 3:07PM;U ser: neuss;Es t. Completi on: 06/08/20 12;Indic ation: vit d def. - (-5) Not Available Not Available Not Available AndroGel 20.25 mg/1.25 gram per pump act. (1.62 %) transderm al gel apply 20.25 mg by topical route once daily in the morning to each upper arm and shoulder for a total dose of 40.5 mg 12/19 completed AndroGel 20.25 mg/1.25 gram (1.62 %) transder mal gel in metered- dose pump;Rec orded Status: Recorded on: 05/09/20 12 6:39PM;D iscontin ued Status: Disconti nued on: 12/20/19 14 8:53AM;U ser: neuss;Es t. 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 ROUTE. active Not Available Not Available No t Available Farxiga 10 mg tablet active Not Available Not Available Not Available Repatha SureClick 140 mg/mL subcutane ous pen injector INJECT 140 MG SUBCUTAN EOUSLY EVERY TWO (2) WEEKS active Not Available Not Available No t Available OneTouch Verio Flex Meter USE DIRECTED active Not Available Not Available No t Available OneTouch Delica Plus Lancet 33 gauge USE DIRECTD 2024 active Not Available Not Available Not Avai lable Vitals Date Recorded Body weight Heart rate Oxygen saturation Oxygen saturation in Arterial blood by Pulse oximetry Systolic And Diastolic Provider Name and Address Organization Details Last Updated DateTime 5 343979. 12 g 56 /min 96 % 96 % 122/80 mm[Hg] Ashly El [place] - [facility] 5 08:29:16 Date Recorded Body height Body mass index (BMI) Body weight Heart rate Respiratory rate Systolic And Diastolic Provider Name and Address Organization Details Last Updated DateTime 8 175.26 cm 31.5 kg/m2 22111.1 7 g 76 /min 18 /min 128/82 mm[Hg] Celeste Garcia [place] - [facility] 8 18:01:13 Date Recorded Body height Body mass index (BMI) Body weight Heart rate Respiratory rate Systolic And Diastolic Provider Name and Address Organization Details Last Updated DateTime 8 175.26 cm 31.3 kg/m2 90835.5 8 g 76 /min 18 /min 124/74 mm[Hg] Celeste Garcia [place] - [facility] 8 12:02:32 Date Recorded Heart rate Oxygen saturation Oxygen saturation in Arterial blood by Pulse oximetry Systolic And Diastolic Provider Name and Address Organization Details Last Updated DateTime 07/31/2024 52 /min 97 % 97 % 127/84 mm[Hg] Ashly El [place] - [facility] 4 08:16:12 Date Recorded Body weight Heart rate Oxygen saturation Oxygen saturation in Arterial blood by Pulse oximetry Respiratory rate Systolic And Diastolic Provider Name and Address Organization Details Last Updated DateTime 4 985186. 28 g 58 /min 97 % 97 % 18 /min 132/82 mm[Hg] Carlos Burnett PA-C [address], [place], [address] - [facility] 19:31:18 Social History Question Answer Notes LastModified by Organizat ion Details LastModified Time Tobacco Smoking Status Former Smoker [place] - [facility] 06/23/2016 12:57:31 Do You Have An Advance Directive? Yes [email or web address] Information not available 07/31/2024 How Many Years Have You Consumed Alcohol? 45 [email or web address] Information not available 07/31/2024 Are You Blind Or Do You Have Difficulty Seeing? No [email or web address] Information not available 12/22/2016 Is Blood Transfusion Acceptable In An Emergency? Yes Information not available 07/31/2024 What Is Your Level Of Caffeine Consumption? Moderate Information not available 06/23/2016 Are You Deaf Or Do You Have Serious Difficulty Hearing? Yes [email or web address] Information not available 07/31/2024 Which Illicit Or Recreational Drugs Have You Used? None [email or web address] Information not available 06/23/2016 What Is The Highest Grade Or Level Of School You Have Completed Or The Highest Degree You Have Received? [id number] [email or web address] Information not available 07/31/2024 When Did You Quit Smoking? 16+yearssince lastcigarette Information not available 07/31/2024 What Was The Date Of Your Most Recent Tobacco Screening? 12/28/2017 Information not available 04/05/2019 Do You Use Protection Against STDs? No [email or web address] Information not available 07/31/2024 What Is Your Relationship Status? [email or web address] Information not available 06/23/2016 Do You Use Your Seat Belt Or Car Seat Routinely? Yes [email or web address] Information not available 07/31/2024 Seat Belts Used Routinely Yes [email or web address] Information not available 12/22/2016 Are You Sexually Active? Yes [email or web address] Information not available 06/23/2016 Smoke Alarm In Home Yes [email or web address] Information not available 06/23/2016 Do You Have Smoke And Carbon Monoxide Detectors In Your Home? Yes [email or web address] Information not available 07/31/2024 At What Age Did You Start Smoking Tobacco? 13 [email or web address] Information not available 07/31/2024 Are You Passively Exposed To Smoke? No [email or web address] Information no t available 07/31/2024 How Much Tobacco Do You Smoke? 3+ PPD [email or web address] Information not available 06/23/2016 General Stress Level Low [email or web address] Information not available 06/23/2016 Do You Use Sunscreen Routinely? No [email or web address] Information not available 07/31/2024 How Many Years Have You Smoked Tobacco? 40 [email or web address] Information not available 07/31/2024 Do You Have Difficulty Walking Or Climbing Stairs? No [email or web address] Information not available 12/22/2016 Sex: Male Functional Status Question Answer Note LastModified by Organizat ion Details LastModified Time Do you use any illicit or recreational drugs? No [email or web address] Information not available 07/31/2024 What is your level of alcohol consumption? Occasional [email or web address] Information not available 06/23/2016 Are you currently employed? No retired [email or web address] Information not available 06/23/2016 Are you able to walk? YESWOREST [email or web address] Information not available 12/22/2016 Do you have difficulty doing errands alone? No [email or web address] Information not available 12/22/2016 Are you able to care for yourself? Yes Information not available 06/23/2016 Do you have difficulty dressing or bathing? No Information not available 12/22/2016 Do you or have you ever used e-cigarettes or vape? Never used electronic cigarettes [email or web address] Information not available 07/31/2024 What is your exercise level? Moderate [email or web address] Information not available 06/23/2016 Mental Status Question Answer Note LastModified by Organizat ion Details LastModified Time Do you feel stressed (tense, restless, nervous, or anxious, or unable to sleep at night)? [id number] [email or web address] Information not available 07/31/2024 Do you have difficulty concentrating, remembering or making decisions? No [email or web address] Information no t available 12/22/2016 Family History Relationship Description Onset Age of this Age Resolved Age Notes LastModified by Organization Details LastModified Time Father Malignant neoplastic disease Not available 2015 12:55:03 Maternal Aunt Diabetes mellitus yan l family member s [email or web address] Not available 06/23/2016 12:56:29 Medical History Condition Response Diabetes Y Heart Problems Y Muscle, Joint, or Bone Problems Y Obesity Y Vision or Eye Problems Y Ear or Hearing Problems Y Erectile Dysfunction Y Kidney or Bladder Problems Y Stroke Y Thyroid Problems Y Asthma Y Hypercholesterolemia Y Sleep Apnea Y Heart Disease Y Hypertension Y Immunizations Vaccine Type Date Status Note Provider Nam e and Address Organization Details Recorded Time RSV, recombinant, protein subunit RSVpreF, adjuvant reconstituted, 0.5 mL, PF 4 completed Cherie Melendrez null, [facility] 09/01/2024 09:54:01 zoster recombinant 2 completed Ashly El null, [facility] 11/15/2024 08:25:25 zoster recombinant 2 completed Ashly El null, [facility] 11/15/2024 08:25:25 Influenza, adjuvanted, quadrivalent, PF 3 completed Ashly El [facility] 11/15/2024 08:25:25 COVID-19, mRNA, LNP-S, PF, 30 mcg/0.3 mL dose 1 completed Ashly El [facility] 11/15/2024 08:25:25 COVID-19, mRNA, LNP-S, PF, 30 mcg/0.3 mL dose 1 completed Ashly El [facility] 11/15/2024 08:25:25 COVID-19, mRNA, LNP-S, PF, 30 mcg/0.3 mL dose 1 completed Ashly El [facility] 11/15/2024 08:25:25 COVID-19, mRNA, LNP-S, bivalent, PF, 50 mcg/0.5 mL or 25mcg/0.25 mL dose 2 completed Ashly El null, [facility] 11/15/2024 08:25:25 COVID-19, mRNA, LNP-S, PF, 50 mcg/0.5 mL 3 [facility] 08:25:25 Pneumococcal conjugate PCV 13 0 completed Ashly El [facility] 11/15/2024 08:25:25 Influenza, high-dose, trivalent, PF 1 [facility] 08:25:25 Influenza, high-dose, trivalent, PF 8 completed Ashly El null, [facility] 11/15/2024 08:25:25 Influenza, high-dose, trivalent, PF 7 completed Not Available [facility] 09/30/2019 03:54:44 influenza, unspecified formulation 9 completed Not Available [facility] 10/14/2019 02:21:54 influenza, unspecified formulation 3 completed Not Available [facility] 10/14/2019 02:21:54 influenza, unspecified formulation 5 completed Not Available [facility] 10/14/2019 02:21:54 influenza, unspecified formulation 2 completed Not Available [facility] 10/14/2019 02:21:54 Novel [id number]-[id number], all formulations 9 completed Not Available [facility] 09/25/2020 03:09:50 Pneumococcal conjugate PCV 13 8 completed Not Available [facility] 09/30/2019 03:55:00 Influenza, split virus, quadrivalent, preservative 8 completed Ashly El null, [facility] 11/15/2024 08:25:25 Influenza, high-dose, trivalent, PF 4 completed Ashly El [facility] 07/31/2024 17:48:08 COVID-19, mRNA, LNP-S, PF, nelson-sucrose, 30 mcg/0.3 mL 4 completed Ashly El null, [facility] 07/31/2024 17:51:15 Pneumococcal conjugate PCV20, polysaccharide [id number] conjugate, adjuvant, PF 4 completed Jose Juan Moody null, [facility] 08/18/2024 13:44:26 Past Encounters Encounter ID Performer Location Encounter Start Date Encounter Closed Date Diagnosis/Indication Diagnosis SNOMED-CT Code Diagnosis ICD10 Code Diagnosis Note [id number] Vick Camejo MD [facility] [address] [place] [address] 06/23/2016 11:43:42 06/23/2016 13:56:53 History of malignant neoplasm of stomach 983700172 Z85.028 [facility] 88747356 E03.9 Essential hypertension 12550744 I10 Benign hypertension 1072 5009 I10 Diabetes mellitus 581756 09 E11.9 Benign par oxysmal positional vertigo 848557198 H81.13 Benign ess ential hypertension 7268653 I10 [id number] [facility] [address] [place] [address] 05/01/2008 00:00:00 [id number] [facility] [address] [place] [address] 2008 00:00:00 [id number] [facility] [address] [place] [address] 07/18/2009 00:00:00 [id number] [facility] [address] [place] [address] 09/23/2009 00:00:00 [id number] [facility] [address] [place] [address] 10/20/2010 00:00:00 [id number] [facility] [address] [place] [address] 09/28/2011 00:00:00 [id number] [facility] [address] [place] [address] 12/14/2011 00:00:00 [id number] [facility] [address] [place] [address] 12/14/2011 00:00:00 [id number] [facility] [address] [place] [address] 03/02/2012 00:00:00 [id number] [facility] [address] [place] [address] 05/09/2012 00:00:00 [id number] [facility] [address] [place] [address] 05/31/2012 00:00:00 [id number] [facility] [address] [place] [address] 05/09/2012 00:00:00 [id number] [facility] [address] [place] [address] 11/30/2012 00:00:00 [id number] [facility] [address] [place] [address] 06/26/2013 00:00:00 [id number] [facility] [address] [place] [address] 12/19/2013 00:00:00 [id number] [facility] [address] [place] [address] 12/19/2013 00:00:00 [id number] [facility] [address] [place] [address] 03/27/2014 00:00:00 [id number] [facility] [address] [place] [address] 11/20/2014 00:00:00 [id number] [facility] [address] [place] [address] 11/23/2014 00:00:00 [id number] [facility] [address] [place] [address] 02/26/2015 00:00:00 [id number] [facility] [address] [place] [address] 01/13/2016 00:00:00 [id number] Vick Camejo MD [facility] [address] [place] [address] [address] 12/22/2016 09:35:56 12/22/2016 11:45:47 Cobalamin deficiency 932529497 E53.8 Environmental allergy 42 7342857 T78.49XA 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 [address] 06/22/2017 09:31:32 06/22/2017 09:35:49 Administration of influenza vaccine 30514959 Z23 [id number] Vick Camejo MD [address] [place] [address] 12/28/2017 09:37:19 12/28/2017 12:00:33 Adult health examination 551492947 Z00.00 Depression screening 171 190293 Z13.89 Examinatio n of blood pressure 158904474 Z01.30 Counseling 250313494 Z71 .82 Exercise counselgorge garcia. Patient encouraged to exercise 30 minutes 5 days a week. Body mass index 30+ - obesity 891833127 Z68.30 Benign pro static hyperplasia 055186799 N40.1 Benign hypertension 1072 5009 I10 Cobalamin deficiency 190 359218 E53.8 Hypothyroidism 58078065 E03.9 Late dumping syndrome 23 4002033 K91.1 Mixed hyperlipidemia 267 346619 E78.2 Viral screening 70008082 4 Z11.59 Administra tion of pneumococcal vaccine 27666915 Z23 [id number] Vick Camejo MD [address] [place] [address] 01/11/2018 17:10:11 01/12/2018 18:05:58 Neoplasm of skin 898993151 D49.2 [id number] Vick Camejo MD [address] [place] [address] 01/18/2018 11:40:20 01/18/2018 12:05:20 Removal of suture 37211803 Z48.02 Removal of jesse 94035 001 Z48.02 [id number] Carlos Burnett PA-C [address] [address] 07/31/2024 08:02:04 07/31/2024 08:53:09 Influenza vaccine needed 8025698615 106 Z23 Discussed supportive care with patient. Discussed expected course and cautioned signs and sxs to seek further treatment. Active or passive immunization 007043618 Z23 will return 2weeks for RSV vaccinatio n [id number] Carlos Burnett PA-C [facility] [address] [place] [address] 08/16/2024 09:01:35 08/23/2024 10:27:54 Immunization advised 389672462 Z71.9 [id number] Carlos Burnett PA-C [facility] [address] [address] 11/15/2024 08:03:44 11/15/2024 10:07:47 Benign hypertension 27954756 I10 Chronic, stable, well controlled on current regimen without adverse effects. Mixed hyperlipidemia 267 720161 E78.2 Hypothyroidism 33573627 E03.9 Health Concerns Section Related Observation LastModified by Organization Detai ls LastModified Time None Recorded Concern Status LastModified by Organization Details LastModified Time None Recorded Advance Directives Directive Y: Payers Insurance Date Sequence Insurance Name Policy Number Policy Ackerman Covered Member ID Ackerman Member ID Guarantor Name 12/26/2024 [facility] (MEDICARE REPLACEMENT/A DVANTAGE - PPO) [id number] Luis Cueto [id number] Luis Cueto 11/12/2024 1 [facility] [id number] Luis Cueto [id number] Luis Cueto Notes Date Note Type Note Provider Name and Address Organization Details Recorded Time 01/11/2018 text/html Skin LesionRepor trudy bypatient.Location:R forehead approx.6-8 mm Quality:sore; quickly changed in size and color Severity:moderate Duration:not sure; changed in past year, doubling in size Onset/Timing:gradual ; becoming more symptomatic; color changing quickly Context:sun exposure as child Aggravating Factors:dampness; sweating Associated Symptoms:no fever; no cold symptoms; no nausea; no vomiting; no diarrhea; no urinary symptoms; no draining; lesion changed color and increased in size DAVID Alvarez [facility] 01/21/2018 08:40:14 01/18/2018 text/html removal of infla mmed keratosis 1 week ago--here for suture removal DAIVD Alvarez [facility] 01/21/2018 08:43:54 07/31/2024 text/html Patient presents to office requesting high dose flu vaccine. Reports PCP Dr. Camejo. Following with specialists in pulm, card, neurology ([facility], and nephrology ([facility]). Pt denies chest pain, SOA, difficulty eating or drinking, changes in bathroom habits, syncope/presyncope, or any other concerns. Carlos Burnett PA-C [address], [place], [address], [place] - [facility] 07/31/2024 08:52:16 08/16/2024 text/html 73yoM presents t o office for pneumonia vaccination. Has had prior PCV 13 without issue (2018). Reports PCP Dr. Camejo. Following with specialists in pulm, card, neurology ([facility], and nephrology ([facility]). Pt denies chest pain, SOA, difficulty eating or drinking, changes in bathroom habits, syncope/presyncope, or any other concerns. Carlos Burnett PA-C [address], [place], [address], [place] - [facility] 08/17/2024 19:32:55 11/15/2024 text/html Patient presents to office for follow up. Patient states had labs Sep 2024, has copies present. Patient also seen by Dr. Camejo, is also followed by multiple speciality physicians.appt today to bring us up to date.Started repatha wednesday, no concerns.Is planning to start mounjaro, able to receive for $[address] Camejo regularly.Pt denies chest pain, SOA, difficulty eating or drinking, changes in bathroom habits, syncope/presyncope, or any other concerns. LN:73yoM presents to office for pneumonia vaccination. Has had prior PCV 13 without issue (2018). Reports PCP Dr. Camejo. Following with specialists in pulm, card, neurology ([facility], and nephrology ([facility]). Pt denies chest pain, SOA, difficulty eating or drinking, changes in bathroom habits, syncope/presyncope, or any other concerns. Carlos Burnett PA-C [address], [place], [address], [place] - [facility] 11/21/2024 21:02:15
--- OUTSIDE RECORDS SUMMARY | 2025-03-29 10:10 | XMS_ITS | Encounter Summary ---
Author Organization [facility] Address 47 [facility]. [address] [address] Care Team Providers Care Tree Care Foreman Name Role Phone Vick Camejo MD Primary Care Provider [phone] Encounter Details Date Type Department Care Team (Late st Contact Info) Description 03/28/[address] [facility] Nephrology [place] [address] [phone] Dante Angeles MD [address] [place] [address] [place] [phone] Hypotension, unspecified hypotension type (Primary Dx) Social History Tobacco Use Types Packs/Day Years Used Date Smoking Tobacco: Former Cigarettes 2 15 0 09/13/1969 - 09/13/1984 Smokeless Tobacco: Current Snuff Alcohol Use Standard Drinks/Week Comments Yes 0 (1 standard drink = 0.6 oz pur e alcohol) rarely Sexually Active Control Partners Comments Yes Male Sex and Gender Information Value Date Recorded Sex Assigned at Not on file Legal Sex Male 4:44 AM EDT Gender Identity Not on file Sexual Orientation Not on file documented as of this encounter Plan of Treatment Upcoming Encounters Date Type Department Care Team (Late st Contact Info) Description 04/03/2025 2:00 PM EDT Office Visit [facility] Nephrology [place] 47 [facility] [address] [place], [place] [phone] Dante Angeles MD [address] [place] [address] [place] [phone] Scheduled Orders Name Type Priority Associated Diagnoses Orde r Schedule BASIC METABOLIC PANEL Lab Routine Hypotension, Unspecified Hypotension Type 1 Occurrences starting 03/28/2025 until 03/28/2026 CBC WITH DIFF Lab Routine Hypotension, Unspecified Hypotension Type 1 Occurrences starting 03/28/2025 until 03/28/2026 MAGNESIUM LEVEL Lab Routine Hypotension, Unspecified Hypotension Type 1 Occurrences starting 03/28/2025 until 03/28/2026 PARATHYROID HORMONE INTACT Lab Routine Hypotension, Unspecified Hypotension Type 1 Occurrences starting 03/28/2025 until 03/28/2026 VITAMIN B12/ FOLIC ACID Lab Routine Hypotension, Unspecified Hypotension Type 1 Occurrences starting 03/28/2025 until 03/28/2026 VITAMIN D, 1,25-DIHYDROXY -REF LAB Lab Routine Hypotension, Unspecified Hypotension Type 1 Occurrences starting 03/28/2025 until 03/28/2026 URINALYSIS Lab Routine Hypotension, Unspecified Hypotension Type 1 Occurrences starting 03/28/2025 until 03/28/2026 PROTEIN LEVEL URINE Lab Routine Hypotension, Unspecified Hypotension Type 1 Occurrences starting 03/28/2025 until 03/28/2026 CREATININE LEVEL URINE Lab Routine Hypotension, Unspecified Hypotension Type 1 Occurrences starting 03/28/2025 until 03/28/2026 PROTEIN/CREATININE RATIO URINE Lab Routine Hypotension, Unspecified Hypotension Type 1 Occurrences starting 03/28/2025 until 03/28/2026 documented as of this encounter Visit Diagnoses Diagnosis Hypotension, unspecified hypotension type- Primary documented in this encounter Care Teams Tree Care Foreman Relationship Specialty Start Date End Date Vick Camejo MD PCP - General Family Medicine 05/25/12 documented as of this encounter
--- OUTSIDE RECORDS SUMMARY | 2025-03-29 10:10 | XMS_ITS | Clinical Summary ---
Author Organization [facility] Address [address] [facility] [place] [address] Phone Care Team Providers Care Seam Finisher Name Role Phone Vick Camejo MD Primary Care Provider [phone] Allergies Active Allergy Reactions Criticality Noted Date Comments Adhesive Rash 05/25/2012 Steri strips Calcium Channel Blocking Agents-Dihydropyridine s Other (See Comments) 05/03/2024 Unable to urinate Tamsulosin Anaphylaxis High 05/03/2024 Mznkvxt-Jyh-Dwg Reductase Inhibitors Myalgia Medium 05/03/2024 Medications losartan (COZAAR) 50 mg Oral Tablet Take 50 mg by mouth 2 times daily. Active aspirin 81 mg tablet Take by mouth daily. Active loratadine (CLARITIN) 10 mg tablet Take 10 mg by mouth daily. Active cyanocobalamin 1,000 mcg/mL injection Inject 1,000 mcg into the muscle once a week. Active clopidogreL (PLAVIX) 75 mg Oral Tablet Take 75 mg by mouth daily. Active fenofibrate (TRICOR) 145 mg Oral Tablet Take 145 mg by mouth daily. Active fUROsemide (LASIX) 40 mg Oral Tablet Take 40 mg by mouth every other day. Active nebivoloL (BYSTOLIC) 5 mg Oral Tablet Take 5 mg by mouth 2 times daily. Active ezetimibe (ZETIA) 10 mg Oral Tablet Take 10 mg by mouth daily. Active tadalafiL (CIALIS) 5 mg Oral Tablet Take 5 mg by mouth daily. Active potassium chloride (KLOR-CON) 10 mEq Oral Tablet Sustained Release Take 10 mEq by mouth every other day. takes with lasix Active montelukast (SINGULAIR) 10 mg Oral Tablet Take 10 mg by mouth every evening. Active fluticasone propionate (FLONASE) 50 mcg/actuation Nasl Aurora, Suspension 1 Aurora by Nasal route 2 times daily. Active budesonide-formo teroL (SYMBICORT) 80-4.5 mcg/actuation Inhl HFA Aerosol Inhaler Inhale 2 Puffs into the lungs 2 times daily. Active dapagliflozin propanediol (FARXIGA) 10 mg Oral Tablet Take 10 mg by mouth daily. Active LEVOthyroxine (SYNTHROID) 200 mcg Oral Tablet Take 200 mcg by mouth daily. Active niacin 500 mg Oral Tablet Take 500 mg by mouth daily (with breakfast). Active nitroGLYCERIN (NITROSTAT) 0.4 mg SL Tablet, Sublingual Place 0.4 mg under the tongue every 5 minutes as needed for Chest pain. Dissolve 1 tablet under the tongue at onset of chest pain. For persistent or worsening pain, call 911 and repeat dose every 5 minutes, up to 3 tablets in a 15-minute period. Active dapagliflozin propanediol (FARXIGA) 10 mg Oral Tablet Take 1 Tablet by mouth daily. 90 Tablet 3 4 Active Cholecalciferol, Vitamin D3, 125 mcg (5,000 unit) Oral Capsule Take 5,000 Units by mouth daily. 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 Encounters Date Type Department Care Team Description 03/28/2025 Orders Only [facility] Nephrology [address] [place] [address] Dante Angeles MD Hypotension, unspecified hypotension type (Primary Dx) from Last 3 Months Immunizations Immunization Administration Dates Next Due Pfizer SARS-CoV-2 Vaccine 12+ Yrs (Purple Cap) 0 11/11/2020,10/16/2020 Surgical History Surgery Date Site/Laterality Comments ABDOMEN SURGERY gastric tumor removal Medical History Medical History Date Comments 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 Hypertension Thyroid disease hypothyroid Hypoglycemia after GI (gastrointestinal) surgery Unspecified cerebral artery occlusion with cerebral infarction TIA 30 years ago Low testosterone Pneumonia Ulcer bleeding Urinary tract infection Hypoglycemia Blood transfusion Cancer (HCC) stomach Family History Medical History Relation Name Comments Cancer Father Relation Name Status Comments Brother 1 Alive Brother 2 Alive Father Alive Mother Alive Sister 1 Alive Sister 2 Alive Social History Tobacco Use Types Packs/Day Years Used Date Smoking Tobacco: Former Cigarettes 2 15 0 09/13/1969 - 09/13/1984 Smokeless Tobacco: Current Snuff Tobacco Cessation:Ready to Q uit: Not Asked; Counseling Given: Not Answered Alcohol Use Standard Drinks/Week Comments Yes 0 (1 standard drink = 0.6 oz pur e alcohol) rarely Sexually Active Control Partners Comments Yes Male Sex and Gender Information Value Date Recorded Sex Assigned at Not on file Legal Sex Male 4:44 AM EDT Gender Identity Not on file Sexual Orientation Not on file Obstetrics History Last Filed Vital Signs Vital Sign Reading Time Taken Comments Blood Pressure 142/83 10/03/2024 1:12 PM EST Pulse 63 10/03/2024 1:12 PM EST Temperature 36.2 C (97.2 F) 10/03/2024 1:12 PM EST Respiratory Rate 20 05/27/2012 8:21 AM EDT Oxygen Saturation 98% 05/27/2012 8:21 AM EDT Inhaled Oxygen Concentration - - Weight 114.8 kg (253 lb) 10/03/2024 1:12 PM EST Height 175.3 cm (5' 9 ) 10/03/2024 1:12 PM EST Body Mass Index 37.36 10/03/2024 1:12 PM EST Plan of Treatment Upcoming Encounters Date Type Department Care Team (Late st Contact Info) Description 04/03/2025 2:00 PM EDT Office Visit [facility] Nephrology [place] 47 [facility] [address] [place] [address] Dante Angeles MD [address] [facility] [address] [place] [address] Health Maintenance Due Date Last Done Comments Wellness Exam Medicare 11/14/1953 Hepatitis C Screening 1966 DTaP/TDaP/Td (1 - Tdap) 11/14/1967 Hepatitis A Vaccine (1 of 2 - Risk 2-dose series) 11/14/1967 Hepatitis B Vaccine (1 of 3 - Risk 3-dose series) 2008 COVID-19 Vaccine ( season) 2025 07/31/2024, 08/16/2023, 05/21/2022, Additional history exists Influenza Vaccine (#1) 2025 , 08/16/2023, 06/05/2021, Additional history exists Zoster Completed 01/14/2022, 10/30/2021 Pneumococcal Vaccine 50+ Completed 024, 07/23/2020, 12/28/2017 RSV or 60+ Completed 08/31/2024 Meningococcal B Vaccine Aged Out No l onger eligible based on patient's age to complete this topic Insurance [employer] MEDICARE PPO MR Advance Directives For more information, please contact: [phone] * Full Code (Latest Code Status on File) Date Activated Date Inactivated Comments 05/25/2012 6:26 PM 05/27/2012 2:55 PM Care Teams Seam Finisher Relationship Specialty Start Date End Date Vick Camejo MD PCP - General Family Medicine 05/25/12
[2025-03-29 10:19] LABS: Microscopic, Urine URINE MICROSCOPIC (MICROSCOPIC)
[2025-03-29 11:00] LABS: Hematocrit 49.2 % (42.0-52.0); Hemoglobin 15.5 g/dL (14.1-18.0); Immature Granulocytes % 0.4 %; Mean Corpuscular HGB Conc 31.5 g/dL (31.8-35.4); Mean Corpuscular Hemoglobin 28.3 pg (27.0-31.2); Mean Corpuscular Volume 89.9 fl (80-94); Nucleated Red Blood Cells % 0 %; Platelet Count 184 K/mm3 (142-424); Red Blood Count 5.47 M/mm3 (4.60-6.20); Red Cell Distribution Width-SD 47.3 fL; White Blood Count 5.3 K/mm3 (4.8-10.8)
[2025-03-29 11:15] LABS: Bilirubin,Urine Negative (Negative); Color,Urine YELLOW (Yellow); Glucose,Urine (UA) 3+ (Negative); Ketones,Urine Negative (Negative); Leukocyte Esterase,Urine Negative (Negative); PH,Urine 6.0 (5.0-8.5); Protein,Urine Negative (Negative); Specific Gravity, Urine 1.010 (1.005-1.030); Urobilinogen,Urine 0.2 EU/dl (0.2)
[2025-03-29 11:30] LABS: Anion Gap 15.5 mEq/L (5-15); Blood Urea Nitrogen 22 mg/dl (9-20); Calcium 9.9 mg/dl (8.4-10.2); Carbon Dioxide 27 mmol/L (22.0-30.0); Chloride 101 mmol/L (98-107); Creatinine,Serum 1.60 mg/dl (0.66-1.25); Estimated Glomerular Filt Rate 42 ml/min (>60); GFR (African American) 51 ML/MIN (>60); Glucose 86 mg/dl (74-100); Magnesium 2.3 mg/dl (1.6-2.3); Phosphorous 3.0 mg/dl (2.5-4.5); Potassium 4.5 mmoL/L (3.5-5.1); Sodium 139 mmol/L (136-145)
[2025-03-29 11:48] LABS: 25-OH Vitamin D, Total 52.6 ng/mL (30-100)
[2025-03-29 12:22] LABS: Vitamin B12 525 pg/mL (239-931)
[2025-03-29 12:36] LABS: Folate 4.79 ng/mL
[2025-04-03 03:36] LABS: 1,25 Dihydroxy Vitamin D 63 pg/mL (.); 1,25-Dihydroxy, Vitamin D-2 <10 pg/mL (.); 1,25-Dihydroxy, Vitamin D-3 63 pg/mL (.)
== END 2025-03-29 23:59 | disposition home or self-care (01) ==
PROVIDERS: PCP Family Medicine; Visit Provider Internal Medicine
DX: I46.9 Cardiac arrest, cause unspecified (principal); N18.30 Chronic kidney disease, stage 3 unspecified
CPT/HCPCS: 36415; 80048; 81001; 82306; 82570; 82607; 82652; 82746; 83735; 83970; 84100; 84156; 85025

== ENCOUNTER 2025-05-21 09:07 | Outpatient (CLI) | payer MEDICARE, SELFPAY ==
--- OUTSIDE RECORDS SUMMARY | 2025-04-02 09:45 | XMS_ITS | Encounter Summary ---
Author Organization [facility] Address 47 [facility]. [address] [place] [address] Care Team Providers Care Motocross Racer Name Role Phone Vick Camejo MD Primary Care Provider [phone] Reason for Visit * Reason Comments Chronic Kidney Disease Hypertension Encounter Details Date Type Department Care Team (Late st Contact Info) Description 04/02/2025 9:45 AM EDT Office Visit [facility] Nephrology [place] [address] [place] [address] Pily Mi, CIVIL MANAGER [address] [place] [phone] Stage 3b chronic kidney disease (HCC) (Primary [...] Referred by Vick Camejo MD PCP from [facility]. Patient Reports: Luis is scheduled for a [...] Allergies: Allergies Allergen Reactions Flomax [Tamsulosin] Anaphylaxis Fwjayfn-Jyz-Irq Reductase Inhibitors Myalgia Adhesive Rash Steri strips [...] Tablet fluticasone propionate (FLONASE) 50 mcg/actuation Nasl Griffin, Suspension fUROsemide (LASIX) 40 mg Oral Tablet [...] call me if anyquestions ( office phone [phone] ). Pily Mi Seen in collaboration with Dante Angeles MD Nephrology documented in this encounter Plan of Treatment Upcoming Encounters Date Type Department Care Team (Late st Contact Info) Description 09/27/2025 2:00 PM EST Office Visit [facility] Nephrology [place] [address] [phone] Dante Angeles MD [address] [place] [address] documented as of this encounter Visit Diagnoses Diagnosis Stage 3b chronic kidney disease (HCC)- Primary Essential hypertension Unspecified essential hypertension documented in this encounter Care Teams Motocross Racer Relationship Specialty Start Date End Date Vick Camejo MD PCP - General Family Medicine 05/25/12 documented as of this encounter
--- OUTSIDE RECORDS SUMMARY | 2025-05-21 09:22 | XMS_ITS | Encounter Summary ---
Author Organization [facility] Address 47 [facility]. [address] [address] Care Team Providers Care Supplier Specialist Name Role Phone Vick Camejo MD Primary Care Provider [phone] Encounter Details Date Type Department Care Team (Late st Contact Info) Description 03/28/2025 Orders Only [facility] Nephrology [place] [address] [phone] Dante Angeles MD [address] [place] [address] [place] [phone] Hypotension, unspecified hypotension type (Primary Dx) [...] Description 09/27/2025 2:00 PM EST Office Visit [facility] Nephrology [place] 47 [facility] [address] [place], [place] [phone] Dante Angeles MD [address] [place] [address] [address] [place] [address] Scheduled Orders Name Type Priority Associated [...] Primary documented in this encounter Care Teams Supplier Specialist Relationship Specialty Start Date End Date Vick Camejo MD PCP - General Family Medicine 05/25/12 documented as of this encounter
--- OUTSIDE RECORDS SUMMARY | 2025-05-21 09:22 | XMS_ITS | Encounter Summary ---
Author Organization [facility] Address 47 [facility]. [address] [address] Care Team Providers Care Thermal Engineer Name Role Phone Vick Camejo MD Primary Care Provider [phone] Reason for Visit * Reason Comments Medication Refill Encounter Details Date Type Department Care Team (Late st Contact Info) Description 05/07/2025 Refill [facility] Nephrology [place] [phone] Pily Mi APRN [address] [phone] Medication Refill Social History Tobacco Use Types Packs/Day Years [...] on file documented as of this encounter Ordered Prescriptions Prescription Sig Dispense Quantity Refills Last Filled Start Date End Date FARXIGA 10 mg Oral Tablet TAKE 1 TABLET DAILY 90 Tablet 3 05/07/2025 documented in this encounter Plan of Treatment Upcoming Encounters Date Type Department Care Team (Late st Contact Info) Description 09/27/2025 2:00 PM EST Office Visit [facility] Nephrology [address] [phone] Dante Angeles MD 47 [facility] [address] [place] [address] documented as of this encounter Visit Diagnoses Not on filedocumented in this encounter Discontinued Medications Medication Sig Discontinue Reason Start Date End Da te dapagliflozin propanediol (FARXIGA) 10 mg Oral Tablet Take 10 mg by mouth daily. DELETE-Duplicate 05/07/2025 dapagliflozin propanediol (FARXIGA) 10 mg Oral Tablet Take 1 Tablet by mouth daily. 06/01/2024 05/07/2025 documented as of this encounter Care Teams Thermal Engineer Relationship Specialty Start Date End Date Vick Camejo MD PCP - General Family Medicine 05/25/12 documented as of this encounter
--- OUTSIDE RECORDS SUMMARY | 2025-05-21 09:22 | XMS_ITS | Clinical Summary ---
Author Organization [facility] Address [address] [place] [address] Care Team Providers Care Cage Clerk Name Role Phone Vick Camejo MD Primary Care Provider [phone] Social History Tobacco Use Types Packs/Day Years Used Date Smoking Tobacco: Never Assessed Sex and Gender Information Value Date Recorded Sex Assigned at Not on file Legal Sex Male 9:02 AM EDT Gender Identity Not on file Sexual Orientation Not on file Plan of Treatment Health Maintenance Due Date Last Done Comments [facility]-Depression Screening 1950 [facility]-/Child/Adol SDOH Screenings 1950 [facility]- SDOH Screenings 1966 [facility]-Adult SDOH Screenings 1966 [facility]-DTaP,Tdap,and Td Vaccines (1 - Tdap) 11/14/1967 [facility]-Pneumococcal Vaccine: 50+ Years (2 of 2 - PPSV23) 07/23/2021 07/23/2020, 12/28/2017 [facility]-RSV Vaccine: 60+ Years or (1 - 1-dose 75+ series) 11/14/2023 [id number] Vaccine (2023- season) 2024 05/21/2022, 06/08/2021, 11/11/2020, [...] to complete this topic Insurance Care Teams Cage Clerk Relationship Specialty Start Date End Date Vick Camejo MD PCP - General 09/13/22
--- OUTSIDE RECORDS SUMMARY | 2025-05-21 09:22 | XMS_ITS | Clinical Summary ---
Author Organization [facility] Address [address] [facility] [place] [address] Phone Care Team Providers Care Service Representative Name Role Phone Vick Camejo MD Primary Care Provider [phone] Allergies Active Allergy Reactions Criticality Noted Date Comments Adhesive Rash 05/25/2012 Steri strips Calcium Channel Blocking Agents-Dihydropyridine s Other (See Comments) 05/03/2024 Unable to urinate Tamsulosin Anaphylaxis High 05/03/2024 Zvqubbl-Ikx-Cwa Reductase Inhibitors Myalgia Medium 05/03/2024 Medications losartan [...] Active fluticasone propionate (FLONASE) 50 mcg/actuation Nasl [place], Suspension 1 [place] by Nasal route 2 times daily. Active budesonide-for moteroL (SYMBICORT) 80-4.5 mcg/actuation Inhl HFA Aerosol Inhaler Inhale 2 Puffs into the lungs 2 times daily. Active LEVOthyroxine (SYNTHROID) 200 mcg Oral [...] 3 tablets in a 15-minute period. Active Cholecalcifero l, Vitamin D3, 125 mcg (5,000 unit) Oral Capsule Take 5,000 Units by mouth daily. Active FARXIGA 10 mg Oral Tablet TAKE 1 TABLET DAILY 90 Tablet 3 05/07/20 25 Active dapagliflozin propanediol (FARXIGA) 10 mg Oral Tablet Take 10 mg by mouth daily. 025 Discontinued(DE LETE-Duplicate) dapagliflozin propanediol (FARXIGA) 10 mg Oral Tablet Take 1 Tablet by mouth daily. 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 Encounters Date Type Department Care Team Description 05/07/2025 Refill [facility] Nephrology [address] [place] [address] Pily Mi APRN Medication Refill 04/02/2025 9:45 AM EDT Office Visit [facility] Nephrology [place] [address] [place] [address] Pily Mi APRN Stage 3b chronic kidney disease (HCC) (Primary Dx); Essential hypertension 03/28/2025 Orders Only [facility] Nephrology [address] [place] [address] Dante Angeles MD Hypotension, unspecified hypotension type [...] Description 09/27/2025 2:00 PM EST Office Visit [facility] Nephrology [place] [address] [place] [id number] Dante Angeles MD [address] [facility] [address] [place] [address] Health Maintenance Due Date Last [...] patient's age to complete this topic Insurance [address] [place] [id number] Advance Directives For more information, please contact: [phone] * Full Code (Latest Code Status on File) Date Activated Date Inactivated Comments 05/25/2012 6:26 PM 05/27/2012 2:55 PM Care Teams Service Representative Relationship Specialty Start Date End Date Vick Camejo MD PCP - General Family Medicine 05/25/12
[2025-05-21 09:49] LABS: Hematocrit 46.2 % (42.0-52.0); Hemoglobin 15.1 g/dL (14.1-18.0); Immature Granulocytes % 0.3 %; Mean Corpuscular HGB Conc 32.7 g/dL (31.8-35.4); Mean Corpuscular Hemoglobin 29.5 pg (27.0-31.2); Mean Corpuscular Volume 90.2 fl (80-94); Nucleated Red Blood Cells % 0 %; Platelet Count 195 K/mm3 (142-424); Red Blood Count 5.12 M/mm3 (4.60-6.20); Red Cell Distribution Width-SD 44.7 fL; White Blood Count 6.5 K/mm3 (4.8-10.8)
[2025-05-21 09:56] LABS: Hemoglobin A1C 5.7 % (4.0-6.0)
[2025-05-21 09:59] LABS: Albumin Level 4.3 g/dl (3.5-5.0); Chloride 107 mmol/L (98-107); Potassium 4.2 mmoL/L (3.5-5.1); Sodium 140 mmol/L (136-145)
[2025-05-21 10:01] LABS: Blood Urea Nitrogen 22 mg/dl (9-20); Creatinine,Serum 1.50 mg/dl (0.66-1.25); Estimated Glomerular Filt Rate 46 ml/min (>60); GFR (African American) 55 ML/MIN (>60)
[2025-05-21 10:02] LABS: Alanine Aminotransferase 41 U/L (12-78); Alkaline Phosphatase 57 U/L (38-126); Aspartate Amino Transferase 44 U/L (17-59); Bilirubin,Direct 0.1 mg/dl (0.0-0.4); Bilirubin,Indirect 0.4 mg/dL (0.0-0.9); Bilirubin,Total 0.5 mg/dl (0.2-1.3); Bilirubin,Unconjugated 0.4 mg/dL (0.0-1.1); Calcium 9.5 mg/dl (8.4-10.2); Cholesterol 73 mg/dl (140-200); Glucose 84 mg/dl (74-100); HDL Cholesterol 41 mg/dl (40-60); Total Protein,Serum 6.9 g/dl (6.3-8.2); Triglycerides 84 mg/dl (30-150)
[2025-05-21 10:17] LABS: Anion Gap 10.2 mEq/L (5-15); Carbon Dioxide 27 mmol/L (22.0-30.0)
[2025-05-21 10:21] LABS: Free T4 (Free Thyroxine) 1.36 ng/dl (0.78-2.19)
[2025-05-21 10:33] LABS: Thyroid Stimulating Hormone 3.85 uIU/mL (0.465-4.68)
== END 2025-05-21 23:59 | disposition home or self-care (01) ==
LOC: LAB 09:08
PROVIDERS: PCP Family Medicine; Visit Provider Nurse Practitioner Family
DX: I25.10 Atherosclerotic heart disease of native coronary artery without angina pectoris (principal); E11.9 Type 2 diabetes mellitus without complications; I12.9 Hypertensive chronic kidney disease with stage 1 through stage 4 chronic kidney disease, or unspecified chronic kidney disease; N18.30 Chronic kidney disease, stage 3 unspecified
CPT/HCPCS: 36415; 80048; 80061; 80076; 83036; 84439; 84443; 85025

== ENCOUNTER 2025-05-30 09:40 | Outpatient (CLI) | payer MEDICARE, SELFPAY ==
--- OUTSIDE RECORDS SUMMARY | 2025-04-02 09:45 | XMS_ITS | Encounter Summary ---
Author Organization [facility] Address 47 [facility]. [address] [place] [address] Care Team Providers Care Awning Craftsperson Name Role Phone Vick Camejo MD Primary Care Provider [phone] Reason for Visit * Reason Comments Chronic Kidney Disease Hypertension Encounter Details Date Type Department Care Team (Late st Contact Info) Description 04/02/2025 9:45 AM EDT Office Visit [facility] Nephrology [place] [address] [place] [address] Pily Mi, PARTS COUNTER ASSOCIATE [address] [place] [id number] Stage 3b chronic kidney disease (HCC) (Primary Dx); Essential hypertension Social History Tobacco Use Types Packs/Day Years [...] on file documented as of this encounter Progress Notes * Pily Mi APRN - 04/02/2025 9:45 AM EDT Images from the original note were not included. Interval History Luis Cueto is a 74 y.o. male with Hx of CKD and hypertension. Referred by Vick Camejo MD PCP from [facility]. Patient Reports: Luis is scheduled for a 6 month FU appointment. Last seen on 10/03/2024. He is doing well. I think pretty good . I feel better than I have in 5 years . BP checked at 142/83 Wt checked at 253 lbs K+= 5.0--> Microalbumin urine - 25.8--> Assessment & Plan 1.CKD Stage III : Cr at present 1.80-->1.80-->1.80--> 1.60 GFR 37-->37-->37--> 42ml/min. Cr range 1.4-2.1 over the last year. Lasix was decreased from daily in 06/2023 to EOD, Cr 2.10 -> 1.8. Acid base balance stable. Renal US ordered and UPC. On Losartan. Hx of urosepsis(citrobacter)2011. Doing OK overall. No overt uremic s/s. Had Cardiac cath in Jun 2023 and had ROBERT post contrast and Cr never recovered to normal. AMBREEN 05/22/24 Reviewed. Cyst 4.5 cm right kidney. Lasix prn, started Ozempic and Repatha Plan: - Off Metformin. Started Farxiga 10 mg daily on 05/03/2024. Started Ozempic (12/2024) and tolerating.Weight down 10 lbs. - Continue Losartan 50 mg BID, Bystolic 5 mg BID - Change Lasix 40 mg daily as needed for weight gain - On Fenofibrate and Repatha (started 11/2024). Cholesterol now controlled. - Discussed risk factor reduction, low Sodium diet close to 2 gm per day, DASH diet, avoid carbonated drinks and animal proteins. Exercise as tolerated. - Try losing wt. Current wt 253 lbs as of 10/03/24 -Recommended Protein intake close to 40-50 gm per day -continue to monitor BP and Weights at home. Report in out of range. -Avoid any NSAIDs. If IV contrast is needed, will need pre-treatment with fluids etc. -Plan CKD educational video next visit - Monitor yearly AMBREEN. Discussed renal cyst, flank pain, gross hematuria with cyst rupture. Associated Risk Factors: a) Hypertension :BP at home stable . Current meds: Losartan 50 mg qd / Bystolic 5 mg BID Goal BP is 125/75 or less. Monitor BP at home. b) Volume: Edema none, On Furosemide 40 mg as needed, take KCl prn with Lasix c) CKD-BMD ( Bone and Mineral ) Pertinent labs- Vit d ( 25 OH) - 29.4, start OTC Vit D 3 5000 IU daily, Ca 7.6 1,25 Vit D- PTH - 59.6-->63.6 Phos- 3.3-->3.2 Ca - 7.6 DEXA scan per Primary. d) Anemia of CKD: Current Hg 15.6 Goal Hg is around 11. If Hg below 10 will start ZANDER. ON B12. e) Hyperlipidemia: last LDL <300. Goal here is LDL < 70. 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 Hypertension Hypoglycemia Hypoglycemia after GI (gastrointestinal) surgery Low testosterone Pneumonia Thyroid disease hypothyroid Ulcer bleeding Unspecified cerebral artery occlusion with cerebral infarction TIA 30 years ago Urinary tract infection Past Surgical History: Past Surgical History: Procedure Laterality Date ABDOMEN SURGERY gastric tumor removal Allergies: Allergies Allergen Reactions Flomax [Tamsulosin] Anaphylaxis Ncuxcoc-Nnp-Eeq Reductase Inhibitors Myalgia Adhesive Rash Steri strips Calcium Channel Blocking Agents-Dihydropyridines Other (See Comments) Unable to urinate Medications: Current Outpatient Medications Medication aspirin 81 mg tablet budesonide-formoteroL (SYMBICORT) 80-4.5 mcg/actuation Inhl HFA Aerosol Inhaler Cholecalciferol, Vitamin D3, 125 mcg (5,000 unit) Oral Capsule clopidogreL (PLAVIX) 75 mg Oral Tablet cyanocobalamin 1,000 mcg/mL injection dapagliflozin propanediol (FARXIGA) 10 mg Oral Tablet dapagliflozin propanediol (FARXIGA) 10 mg Oral Tablet ezetimibe (ZETIA) 10 mg Oral Tablet fenofibrate (TRICOR) 145 mg Oral Tablet fluticasone propionate (FLONASE) 50 mcg/actuation Nasl Gilbert, Suspension fUROsemide (LASIX) 40 mg Oral Tablet LEVOthyroxine (SYNTHROID) 200 mcg Oral Tablet loratadine (CLARITIN) 10 mg tablet losartan (COZAAR) 50 mg Oral Tablet montelukast (SINGULAIR) 10 mg Oral Tablet nebivoloL (BYSTOLIC) 5 mg Oral Tablet niacin 500 mg Oral Tablet nitroGLYCERIN (NITROSTAT) 0.4 mg SL Tablet, Sublingual potassium chloride (KLOR-CON) 10 mEq Oral Tablet Sustained Release tadalafiL (CIALIS) 5 mg Oral Tablet No current facility-administered medications for this visit. Social History: Social History Tobacco Use Smoking status: Former Current packs/day: 0.00 Average packs/day: 2.0 packs/day for 15.0 years (30.0 ttl pk-yrs) Types: Cigarettes Start date: 09/13/1969 Quit date: 09/13/1984 Years since quittin.5 Smokeless tobacco: Current Types: Snuff Substance Use Topics Alcohol use: Yes Comment: rarely Drug use: No Family History: Family History Problem Relation Age of Onset Cancer Father Pertinent Labs: CBC: Lab Results Component Value Date WBC 11.4 (H) 05/26/2012 RBC 4.80 05/26/2012 HGB 14.5 05/26/2012 HCT 42.9 05/26/2012 MCV 89.3 05/26/2012 MCHC 33.7 05/26/2012 RDW 14.5 05/26/2012 PLT 130 (L) 05/26/2012 MPV 8.4 05/26/2012 BMP: Lab Results Component Value Date NA 137 05/27/2012 K 4.6 05/27/2012 CL 107 05/27/2012 CO2 21 (L) 05/27/2012 BUN 13 05/27/2012 CREATININE 1.1 05/27/2012 CALCIUM 7.6 (L) 05/27/2012 GFRAFRAM >60 05/27/2012 GFRNONAFRAM >60 05/27/2012 GLU 78 05/27/2012 Review of Systems: 12 point ROS done and negative except listed above Physical Exam: Patient is Alert and oriented x3 HEENT, PEERL Chest clear to auscultation bilaterally S1S2 normal Abdomen is soft and NT Ext: Edema none Patient Active Problem List Diagnosis UTI (lower urinary tract infection) Sepsis (HCC) Hypotension Gastric stromal tumor (HCC) Return to CKD Clinic in 6 month with labs. Labs to be drawn few days prior to the visit. Thank You for letting me participate in your patient care. Please do not hesitate to call me if anyquestions ( office phone [phone] ). Pily Mi Seen in collaboration with Dante Angeles MD Nephrology documented in this encounter Plan of Treatment Upcoming Encounters Date Type Department Care Team (Late st Contact Info) Description 09/27/2025 2:00 PM EST Office Visit [facility] Nephrology [place] [address] [id number] Dante Angeles MD [address] [place] [address] documented as of this encounter Visit Diagnoses Diagnosis Stage 3b chronic kidney disease (HCC)- Primary Essential hypertension Unspecified essential hypertension documented in this encounter Care Teams Awning Craftsperson Relationship Specialty Start Date End Date Vick Camejo MD PCP - General Family Medicine 05/25/12 documented as of this encounter
--- OUTSIDE RECORDS SUMMARY | 2025-05-31 11:41 | XMS_ITS | Clinical Summary ---
Author Organization [facility] Address [address] [place] [address] Care Team Providers Care Assistant Mechanic Name Role Phone Vick Camejo MD Primary Care Provider [phone] Social History Tobacco Use Types Packs/Day Years [...] Vaccine: 50+ Years (2 of 2 - PCV20 or PCV21) 07/23/2021 07/23/2020, 12/28/2017 UKY-RSV Vaccine: 60+ Years or (1 - 1-dose 75+ series) 11/14/2023 [id number] Vaccine ( - season) 2025 05/21/2022, 06/08/2021, 11/11/2020, Additional history exists UKY-Influenza [...] to complete this topic Insurance Care Teams Assistant Mechanic Relationship Specialty Start Date End Date Vick Camejo MD PCP - General 09/13/22
--- OUTSIDE RECORDS SUMMARY | 2025-05-31 11:41 | XMS_ITS | Clinical Summary ---
Author Organization [facility]ON[facility] Address [place] [address] Phone Care Team Providers Care Soil Technologist Name Role Phone Vick Camejo MD Primary Care Provider [phone] Allergies Active Allergy Reactions Criticality Noted Date Comments Adhesive Rash 05/25/2012 Steri strips Calcium Channel Blocking Agents-Dihydropyridine s Other (See Comments) 05/03/2024 Unable to urinate Tamsulosin Anaphylaxis High 05/03/2024 Yboxmpk-Ker-Voh Reductase Inhibitors Myalgia Medium 05/03/2024 Medications losartan [...] Active fluticasone propionate (FLONASE) 50 mcg/actuation Nasl [place], Suspension 1 [place] by Nasal route 2 times daily. Active [...] Type Department Care Team Description 05/07/2025 Refill [facility] Nephrology [address] [place] [address] Pily Mi APRN Medication Refill 04/02/2025 9:45 AM EDT Office Visit [facility] Nephrology [place] [address] [place] [address] Pily Mi APRN Stage 3b chronic kidney disease (HCC) (Primary Dx); Essential hypertension 03/28/2025 Orders Only [facility] Nephrology [address] [place] [address] Dante Angeles MD Hypotension, unspecified hypotension type [...] 09/27/2025 2:00 PM EST Office Visit [facility] Nephrology [place] [address] [place] [id number] Dante Angeles MD [address] [facility] [address] [place] [address] Health Maintenance Due Date Last [...] complete this topic Insurance [address] [place] [id number] Advance Directives For more information, please contact: [phone] * Full Code (Latest Code Status on File) Date Activated Date Inactivated Comments 05/25/2012 6:26 PM 05/27/2012 2:55 PM Care Teams Soil Technologist Relationship Specialty Start Date End Date Vick Camejo MD PCP - General Family Medicine 05/25/12
--- OUTSIDE RECORDS SUMMARY | 2025-05-31 11:41 | XMS_ITS | Encounter Summary ---
Author Organization [facility] Address [address] [facility]. [address] [address] Care Team Providers Care Senior Net Application Developer Name Role Phone Vick Camejo MD Primary Care Provider [phone] Reason for Visit * Reason Comments Medication Refill Encounter Details Date Type Department Care Team (Late st Contact Info) Description 05/07/2025 Refill [facility] Nephrology [place] [phone] Pily Mi APRN [address] [address] Medication Refill Social History Tobacco [...] 09/27/2025 2:00 PM EST Office Visit [facility] Nephrology [address] [id number] Dante Angeles MD 47 [facility] [address] [place] [address] documented as of this encounter Visit Diagnoses Not on filedocumented in this encounter Discontinued Medications Medication Sig Discontinue Reason Start Date End Da te dapagliflozin propanediol (FARXIGA) 10 mg Oral Tablet Take 10 mg by mouth daily. DELETE-Duplicate 05/07/2025 dapagliflozin propanediol (FARXIGA) 10 mg Oral Tablet Take 1 Tablet by mouth daily. 06/01/2024 05/07/2025 documented as of this encounter Care Teams Senior Net Application Developer Relationship Specialty Start Date End Date Vick Camejo MD PCP - General Family Medicine 05/25/12 documented as of this encounter
== END 2025-05-30 23:59 ==
LOC: LAB.DROPOF 05-31 11:39
PROVIDERS: PCP Family Medicine; Visit Provider Family Medicine
DX: Z12.5 Encounter for screening for malignant neoplasm of prostate (principal)
CPT/HCPCS: G0103

== ENCOUNTER 2025-06-07 08:35 | Outpatient (CLI) | payer MEDICARE, SELFPAY ==
--- OUTSIDE RECORDS SUMMARY | 2025-06-11 09:45 | XMS_ITS | Clinical Summary ---
Author Organization [facility] Address [address] [place] [address] Care Team Providers Care Milk Bottling Machine Operator Name Role Phone Vick Camejo MD Primary Care Provider [phone] Social History Tobacco Use Types Packs/Day Years [...] or (1 - 1-dose 75+ series) 11/14/2023 [id number] Vaccine ( - season) 2025 05/21/2022, 06/08/2021, [...] to complete this topic Insurance Care Teams Milk Bottling Machine Operator Relationship Specialty Start Date End Date Vick Camejo MD PCP - General 09/13/22
--- OUTSIDE RECORDS SUMMARY | 2025-06-11 09:45 | XMS_ITS | Encounter Summary ---
Author Organization [facility] Address [address] [facility]. [address] [address] Care Team Providers Care Rail Car Driver Name Role Phone Vick Camejo MD Primary Care Provider [phone] Reason for Visit * Reason Comments Medication Refill Encounter Details Date Type Department Care Team (Late st Contact Info) Description 05/07/2025 Refill [facility] Nephrology [place] [phone] Pily Mi APRN [address] [address] Medication Refill Social History Tobacco [...] Description 09/27/2025 2:00 PM EST Office Visit [facility] Nephrology [address] [id number] Dante Angeles MD 47 [facility] [address] [place] [address] documented as of this encounter Visit Diagnoses Not on filedocumented in this encounter Discontinued Medications Medication Sig Discontinue Reason Start Date End Da te dapagliflozin propanediol (FARXIGA) 10 mg Oral Tablet Take 10 mg by mouth daily. DELETE-Duplicate 05/07/2025 dapagliflozin propanediol (FARXIGA) 10 mg Oral Tablet Take 1 Tablet by mouth daily. 06/01/2024 05/07/2025 documented as of this encounter Care Teams Rail Car Driver Relationship Specialty Start Date End Date Vick Camejo MD PCP - General Family Medicine 05/25/12 documented as of this encounter
--- OUTSIDE RECORDS SUMMARY | 2025-06-11 09:45 | XMS_ITS | Clinical Summary ---
Author Organization [facility]ON[facility] Address [address] [place] [address] Phone Care Team Providers Care Generator Repairer Name Role Phone Vick Camejo MD Primary Care Provider [phone] Allergies Active Allergy Reactions Criticality Noted Date Comments Adhesive Rash 05/25/2012 Steri strips Calcium Channel Blocking Agents-Dihydropyridine s Other (See Comments) 05/03/2024 Unable to urinate Tamsulosin Anaphylaxis High 05/03/2024 Qpwfsgw-Gbc-Wyh Reductase Inhibitors Myalgia Medium 05/03/2024 Medications losartan [...] Active fluticasone propionate (FLONASE) 50 mcg/actuation Nasl [place], Suspension 1 [place] by Nasal route 2 times daily. Active budesonide-form oteroL (SYMBICORT) 80-4.5 mcg/actuation Inhl HFA Aerosol Inhaler [...] 3 tablets in a 15-minute period. Active Cholecalciferol , Vitamin D3, 125 mcg (5,000 unit) Oral Capsule Take 5,000 Units by mouth daily. 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 Encounters Date Type Department Care Team Description 05/07/2025 Refill [facility] Nephrology [address] [address] Pily Mi APRN Medication Refill 04/02/2025 9:45 AM EDT Office Visit [facility] Nephrology [address] [facility] [address] [place] [address] Pily Mi APRN Stage 3b chronic kidney disease (HCC) (Primary Dx); Essential hypertension 03/28/2025 Orders Only [facility] Nephrology [address] [place] [address] Dante Angeles MD Hypotension, unspecified hypotension type [...] on file Sexual Orientation Not on file Last Filed Vital Signs Vital Sign Reading [...] EST Office Visit [facility] Nephrology [place] [address] [facility] [address] [place] [address] Dante Angeles MD 47 [facility] [address] [place] [address] Health Maintenance Due Date Last [...] patient's age to complete this topic Insurance Advance Directives For more information, please contact: [phone] * Full Code (Latest Code Status on File) Date Activated Date Inactivated Comments 05/25/2012 6:26 PM 05/27/2012 2:55 PM Care Teams Generator Repairer Relationship Specialty Start Date End Date Vick Camejo MD PCP - General Family Medicine 05/25/12
== END 2025-06-07 23:59 ==
LOC: LAB.DROPOF 06-11 09:42
PROVIDERS: PCP Family Medicine; Visit Provider Family Medicine
DX: R30.0 Dysuria (principal)
CPT/HCPCS: 87086

== ENCOUNTER 2025-08-21 09:29 | Outpatient (CLI) | payer MEDICARE, SELFPAY ==
--- NOTE | 2025-08-21 09:32 | US_ITS ---
FINAL REPORT TECHNIQUE: Ultrasound examination of the pelvis was performed with a full bladder. Postvoid examination was performed as well. CLINICAL HISTORY: PROSTATE INFECTION COMPARISON: None FINDINGS: PELVIC ULTRASOUND: The bladder measures 8 x 8.3 x 8.7 cm in size. The full bladder volume is 300.94 cc. There is an enlarged prostate present measuring up to 6.6 cm in diameter, with a lobular contour. The prostate gland indents the bladder base, likely extrinsic but not definitive. There is a large postvoid residual of 113 cc present. IMPRESSION: Indentation of the bladder base is present that is likely extrinsic but not definitive, with a large postvoid residual. Urologic evaluation is recommended. Reviewed, Interpreted and Dictated by Don Cardenas MD Transcribed by Mady Herron Authenticated and [facility]
--- NOTE | 2025-08-21 09:32 | US_ITS ---
FINAL REPORT TECHNIQUE: Sonographic images of the kidneys and retroperitoneum were obtained in the longitudinal and transverse planes. CLINICAL HISTORY: .diff holding urine-- prostate elev COMPARISON: 05/22/2024 FINDINGS: The right kidney measures 11.4 cm in gikx-ez-ewdl length. No hydronephrosis, mass, or stone. There is an anechoic focus present, 4.6 cm in diameter, in the lower pole of the right kidney, consistent with a benign cyst. Cortical echogenicity and thickness are normal. The left kidney measures 11.2 cm in ghcg-mz-dmqw length. No hydronephrosis, mass, or stone. Cortical echogenicity and thickness are normal. Note is made of fatty infiltration of the liver. IMPRESSION: Morphologically normal kidneys bilaterally. Anechoic 4.6 cm right renal cyst. Reviewed, Interpreted and Dictated by Don Cardenas MD Transcribed by Mady Herron Authenticated and [facility]
== END 2025-08-21 23:59 | disposition home or self-care (01) ==
LOC: RAD 09:29
PROVIDERS: PCP Family Medicine; Visit Provider Urology
DX: N28.1 Cyst of kidney, acquired (principal); N41.9 Inflammatory disease of prostate, unspecified; R39.198 Other difficulties with micturition; R93.41 Abnormal radiologic findings on diagnostic imaging of renal pelvis, ureter, or bladder
CPT/HCPCS: 76770; 76857